=== PATIENT | female | born 1940 | race African-American/Black ===

== ENCOUNTER 2018-09-25 12:16 | Inpatient (IN) ==
[2018-09-25] MEDS ORDERED: NS 1,000 ML IV PRN (12:18)
--- NOTE | 2018-09-25 13:00 | Diag Imaging Result Doc PS360 ---
EXAM: CT HEAD W/O CONTRAST HISTORY: stroke like symptoms TECHNIQUE: CT head without contrast COMPARISON: None. FINDINGS: Recent right craniotomy with lateral skin kayla. Tiny associated extra-axial collection measuring 2 mm in thickness. Hypodense area superiorly in the right parietal lobe consistent with a subacute infarct. This measures less than 3.5 cm. No parenchymal hemorrhage. No hydrocephalus. No sinus opacification. IMPRESSION: 1.Subacute superior right parietal infarct 2.Recent right craniotomy with postsurgical changes This exam was performed using automated exposure control, adjustment of mA or kV according to patient size, and/or use of iterative reconstruction technique. Electronically signed by Dewayne Francisco 09/25/2018 12:57 PM
--- NOTE | 2018-09-25 13:06 | Diag Imaging Result Doc PS360 ---
EXAM: CHEST-PORTABLE HISTORY: stroke like symptoms TECHNIQUE: Portable chest single view COMPARISON: 11/28/2015 FINDINGS: Poor inspiratory effort. The heart is not enlarged. The vessels are not distended. There are no infiltrates. No effusion identified. IMPRESSION: Stable chest Electronically signed by Dewayne Francisco 09/25/2018 1:04 PM
[2018-09-25 13:19] LABS: URINE SOURCE CATH
[2018-09-25 13:30] LABS: BASO# 0.03 X1000 (0.0-0.2); BASO% 0.4 % (0.0-0.8); EOS% 6.6 % (0.0-10.0); HEMATOCRIT 24.3 % (37.0-47.0); HEMOGLOBIN 7.6 g/dL (12.0-16.0); IMM GRAN# 0.02 X1000 (0.0-0.04); IMM GRAN% 0.3 % (0.0-0.5); LYMPH# 1.87 X1000 (1.2-3.4); LYMPH% 24.5 % (20.5-51.1); MCH 25.5 PG (27-31); MCHC 31.3 g/dL (33-37); MCV 81.5 FL (81-99); MONO# 0.47 X1000 (0.11-0.59); MONO% 6.2 % (1.7-9.3); MPV 11.3 FL (7.4-10.4); NEUT# 4.74 X1000 (1.4-6.5); PLT 461 X1000 (130-400); RBC 2.98 XMIL (4.2-5.4); RDW 15.4 % (11.5-14.5); WBC 7.63 X1000 (4.8-10.8)
[2018-09-25 13:31] LABS: BILIRUBIN URINE NEGATIVE (NEGATIVE); BLOOD URINE MODERATE (NEGATIVE); COLOR YELLOW; GLUCOSE URINE 150 mg/dL (NEGATIVE); KETONE URINE NEGATIVE (NEGATIVE); LEUKOCYTES URINE SMALL (NEGATIVE); NITRITE URINE NEGATIVE (NEGATIVE); PROTEIN URINE 50 mg/dL (NEGATIVE); SP GRAVITY URINE 1.029; TURBIDITY URINE HAZY (CLEAR); UR EPITHELIAL CELLS <10 /HPF (<10); URINE BACTERIA NEGATIVE /HPF; URINE WBC <10 /HPF (<10); UROBILINOGEN URINE 2 mg/dL (NORMAL)
[2018-09-25 13:33] LABS: INR 1.45; PROTIME 17.9 Seconds (11.0-16.0); PTT 29.2 Seconds (22.3-41.8)
[2018-09-25 13:34] LABS: UR AMPHETAMINES QUAL NONE DETECTED (NONE DETECT); UR BARBITUATES QUAL NONE DETECTED (NONE DETECT); UR BENZODIAZEPIN QUAL NONE DETECTED (NONE DETECT); UR CANNABINOIDS QUAL NONE DETECTED (NONE DETECT); UR COCAINE QUAL NONE DETECTED (NONE DETECT); UR METHADONE QUAL NONE DETECTED (NONE DETECT); UR OPIATES QUAL NONE DETECTED (NONE DETECT); UR OXYCODONE QUAL NONE DETECTED (NONE DETECT); UR PCP QUAL NONE DETECTED (NONE DETECT)
[2018-09-25 13:35] LABS: BLOOD TYPE ARTERIAL; SAMPLE BLOOD
[2018-09-25 13:36] LABS: ALLEN TEST NO; BE -5.6 mmoll (-3.0-3.0); HCO3-(ACT) 20.6 mmoll (20.0-26.0); METHB 0.8 % (0.0-1.5); O2(CT) 9.6 mL/dL (15.0-23.0); PCO2(98.6) 33 mmHg (35-45); PO2(98.6) 111 mmHg (60-100); SAO2 99.4 % (95.0-100.0); THB 6.9 g/dL (11.5-17.4); pH(98.6) 7.37 (7.35-7.45)
[2018-09-25 13:38] LABS: MODALITY CANNULA
[2018-09-25] MEDS ORDERED: VANCOMYCIN 1 GM/NS 1 GM/250 ML IVPB IV ONE (13:42)
[2018-09-25] MEDS ORDERED: AZACTAM 2 GM in NS 100 ML IV ONE (13:43)
[2018-09-25 13:45] LABS: URINE YEAST NONE SEEN
[2018-09-25 13:50] LABS: ALB/GLOB RATIO 0.9; CALCIUM 10.3 mg/dL (8.8-10.2); CREATININE 4.7 mg/dL (0.5-0.9); POTASSIUM 6.2 mmol/L (3.5-5.1); TOTAL BILIRUBIN 1.07 mg/dL (0.20-1.00); TOTAL PROTEIN 6.4 g/dL (6.3-8.3)
--- NOTE | 2018-09-25 13:53 | EKG Report ---
Test Performed on : 09/25/2018 12:37:29 PM Test Reason : Stroke like symptoms Blood Pressure : / mmHG Vent. Rate : 120 BPM Atrial Rate : 120 BPM P-R Int : 158 ms QRS Dur : 082 ms QT Int : 302 ms P-R-T Axes : 049 -08 065 degrees QTc Int : 426 ms Sinus tachycardia. Otherwise normal ECG When compared with ECG of 21-NOV-2015 12:59, ST elevation now present in Inferior leads Unconfirmed Result
[2018-09-25] MEDS ORDERED: NS 1,000 ML IV ONE ×3 (14:00→19:14)
[2018-09-25] MEDS ORDERED: CALCIUM CHLORIDE SYRINGE IV ONE (14:00)
[2018-09-25] MEDS ORDERED: SODIUM BICARBONATE 8.4% IV ONE (14:01)
[2018-09-25] MEDS ORDERED: HUMULIN R IV ONE (14:02)
[2018-09-25 14:35] LABS: CK INDEX 4.8 (0.0-2.5); CK-MB 10.74 ng/mL (0.0-5.0)
[2018-09-25] MEDS ORDERED: ALBUTEROL 0.5% INH CONC FOR HYPERKALEMIA INH ONE (15:12)
[2018-09-25 15:56] LABS: UR CREAT RANDOM 107.3 mg/dL (11-20)
[2018-09-25] MEDS ORDERED: VANCOMYCIN IV PER PHARMACY MISC SCH ×2 (17:30→18:30)
[2018-09-25] MEDS: NS 1,000 ML IV SCH (18:14)
--- NOTE | 2018-09-25 18:40 | Diag Imaging Result Doc PS360 ---
EXAM: CT ABDOMEN/PELVIS W/O CONTRAST HISTORY: r/o perforation TECHNIQUE: CT abdomen and pelvis without oral or intravenous contrast COMPARISON: None. FINDINGS: There is a gastric catheter in the subcutaneous tissues of the anterior abdomen. This does not enter the stomach or abdomen. There is fluid and air in the subcutaneous tissues. Possible debris as well. No calcified gallstones. Normal noncontrasted liver, spleen, pancreas, and adrenal glands. There is a 17 mm stone in the right renal pelvis. No hydronephrosis. Normal aorta. No bowel obstruction. No intra-abdominal abscess. There is a Felton catheter in the urinary bladder. Normal uterus. No pelvic mass. No free fluid in the abdomen or pelvis. IMPRESSION: Malpositioned gastric tube in the subcutaneous tissues. This report was discussed with Joon in the emergency room who will give the results to Dr Palmer on 09/25/2018 at 6:35 PM and was readback. This exam was performed using automated exposure control, adjustment of mA or kV according to patient size, and/or use of iterative reconstruction technique. Electronically signed by Dewayne Francisco 09/25/2018 6:38 PM
[2018-09-25] MEDS: FLAGYL 500 MG/NS 500 MG/100 ML IVPB IV SCH (18:51)
[2018-09-25] MEDS ORDERED: KEPPRA 750 MG in NS 100 ML IV ONE (19:00)
--- NOTE | 2018-09-25 19:07 | PROVIDER DOCUMENTATION ---
This chart was entered by Essence Rubio Scribe, acting as scribe for Kwan Taylor MD. HPI-Neurological Disorder - General Chief Complaint: STROKE ALERT Stated Complaint: STROKE LIKE SX Time Seen by Provider: 09/25/18 13:05 Source: family Allergies/Adverse Reactions: Patient Allergies Allergy/AdvReac Type Severity Reaction Status Date / Time Penicillins Allergy ITCHING Verified 11/21/15 12:31 levofloxacin [From Levaquin] AdvReac NAUSEA/VOMI Verified 11/21/15 12:31 TING Home Medications: Home Medication List Medication Instructions Recorded Confirmed Last Taken Type ATORVAstatin [Lipitor] 40 mg PO QHS 11/21/15 11/27/15 11/26/15 08:30 History 40 Amlodipine Besylate [Norvasc] 5 mg PO DAILY 11/21/15 11/27/15 11/27/15 03:30 History 5 Duloxetine [Cymbalta] 60 mg PO DAILY 11/21/15 11/27/15 11/26/15 07:30 History 60 Folic Acid 400 mg PO DAILY 11/21/15 11/27/15 11/26/15 07:30 History 400 Temazepam [Restoril] 30 mg PO QHS 11/21/15 11/27/15 11/20/15 History 30 Diphenhydramine [Benadryl] 2 cap PO HS PRN PRN 11/27/15 11/27/15 11/26/15 22:00 History 2 Ferrous Sulfate 325 mg PO TID #90 tablet 11/30/15 Unknown Rx Hydrocodone/APAP 10 mg/325 mg 1 - 2 each PO Q4H PRN PRN #60 11/30/15 Unknown Rx [[place]-10] tablet Rivaroxaban [Xarelto] 10 mg PO DAILY@0600 #14 tablet 11/30/15 Unknown Rx - History of Present Illness-Neuro Nature of Presenting Problem: 78 yof presents w/family to ed w/cc poss cva. pt responding to pain but o therwise nonverbal and unable to follow commands or answer questions. pt had recent sx, subdural removed from rt side, kayla to scalp from rt ear to top of scalp. pt has pegg tube. pt came from SNF. family sts pt was found this am confused. pt has hx of arthritis, depression, high cholesterol, htn. uses pain pump. family sts pt had sx for subdural from prev fall at [facility], woke from sx a ble to speak, move extremities, pt within 24 hours had to go back into sx for subdural evacuation again, pt woke up from 2nd sx w/obvious left sided weakness, had CVA. pt has been at [facility] and doing pt w/no problems, pt had a fall yesterday getting out of chair unassisted, family noticed symptoms today. pt has no med hx prior to this. Review of Systems - Adult - REVIEW OF SYSTEMS - ADULT Constitutional: reports: see HPI, other (confusion, responds to pain). denies: chills, fever, fatique Eyes: reports: no symptoms reported Ears, Nose, Mouth & Throat: reports: no symptoms reported Cardiovascular: reports: no symptoms reported Respiratory: reports: no symptoms reported Gastrointestinal: reports: no symptoms reported Genitourinary: reports: no symptoms reported Musculoskeletal: reports: no symptoms reported Integumentary: reports: no symptoms reported Neurological: reports: no symptoms reported. denies: dizziness/vertigo, headache/migraines, slurred speech, syncope Psychiatric: reports: no symptoms reported Endocrine: reports: no symptoms reported Hematologic/Lymphatic: reports: no symptoms reported Allergic/Immunologic: reports: no symptoms reported All Other Systems: Reviewed and Negative Past History - Adult - PAST MEDICAL HISTORY-ADULT Review of Records: reports: Old Records Reviewed, Nursing Assessment Review, Medications Reviewed, Social history reviewed & non-contributory. Major Childhood Illnesses: reports: denies history Cardiovascular: reports: HTN, hyperlipidemia Respiratory: reports: denies history Gastrointestinal: reports: denies history Obstetrical/Gynecological: reports: denies history Genitourinary: reports: denies history Musculoskeletal: reports: arthritis Neurological: reports: denies history Psychiatric: reports: depression Endocrine/Immune: reports: denies history Other Conditions: reports: denies history - PRIOR SURGERIES/PROCEDURES Surgical/Procedure History: reports: recent surgery (scalp), other - IMMUNIZATION STATUS Childhood Immunizations: See Nurse Assessment Flu Vaccine: See Nurse Assessment - FAMILY HISTORY Family History: reviewed, not pertinent - SOCIAL HISTORY Smoking: non-smoker Substance Use: none/never Physical Exam- Neurological - Physical Exam-Neuro Initial Vital Signs Reviewed: Yes General Appearance: no apparent distress, lethargic (recent subdural, nonverbal) . negative: alert, anxious, combative Eye Exam: bilateral eye: PERRL, EOMI, other (has bilat blink reflex when hands wave in front of her ) HENMT: normocephalic/atraumatic, other (pt has bottom teeth, no upper teeth). negative: moist mucous membranes (dry muc mem), normal ENT inspection, frontal tenderness, maxillary tenderness Head Injury: other (recent sx, kayla from rt ear to top of scalp, subdural r emoved). negative: active bleeding, contusions, ecchymosis, flap Neck: non-tender, full range of motion, supple, normal inspection Respiratory: chest non-tender, lungs clear, normal breath sounds Cardiovascular: normal peripheral pulses, no edema, no gallop, no JVD, no murmur , tachycardia, other (bp 74/43). negative: regular rate, rhythm, JVD, bradycardia, friction rub, irregularly irregular Abdominal Exam: normal bowel sounds, non tender, soft, other (pegg tube mid abd) . negative: guarding, rigid, rebound Lymphatic: no adenopathy Peripheral Pulses: radial (R): 2+, radial (L): 2+ Extremity: non-tender. negative: normal range of motion (pt able to squeeze fingers w/rt hand. more weak w/left hand.), normal gait, normal inspection, deformity, erythema, inflammation supervisor metalizing Exam: normal hearing, PERRL. negative: normal speech (responds to pain, but nonverbal), abnormal eye position, abnormal speech, facial asymmetry, facial droop Motor/Sensory: no sensory deficit, weak motor strength LUE. negative: no motor deficit, sensory deficit, weak motor strength RUE Neurologic: motor weakness (left sided hand squeeze), other (unable to test cn's due to pt being nonverbal). negative: no motor/sensory deficits, EOM palsy, facial droop, focal weakness, sensory deficit Integumentary: normal color, normal turgor, warm/dry Psych/Mental Status: other (nonverbal). negative: anxious, disheveled, depressed affect - Glascow Coma Scale Best Eye Response: (2) open to pain Best Verbal Response: (1) no verbal response Best Motor Response: (4) withdraws to pain Total Glascow Score: 7 Progress - PLAN OF CARE/RESULTS Progress/Plan/Lab Results: Vital Signs - 8 hr 09/25/18 12:19 09/25/18 13:22 Temperature 97.9 F Pulse Rate 125 H 107 H Respiratory Rate 30 H 25 H Blood Pressure 94/50 94/57 O2 Sat by Pulse Oximetry 94 L 100 Laboratory Results - last 24 hr 09/25/18 09/25/18 09/25/18 12:42 12:47 12:47 WBC 7.63 RBC 2.98 L Hgb 7.6 L Hct 24.3 L MCV 81.5 MCH 25.5 L MCHC 31.3 L RDW Std Deviation 15.4 H Plt Count 461 H MPV 11.3 H Immature Gran % (Auto) 0.3 Neut % (Auto) 62.0 Lymph % (Auto) 24.5 [place] % (Auto) 6.2 Eos % (Auto) 6.6 Baso % (Auto) 0.4 Immature Gran # (Auto) 0.02 Neut # (Auto) 4.74 Lymph # (Auto) 1.87 [place] # (Auto) 0.47 Eos # (Auto) 0.50 Baso # (Auto) 0.03 PT INR PTT (Actin FS) Specimen Type Sample Site pH pCO2 pO2 HCO3 Base Excess Oxyhemoglobin ABG O2 Sat (Calculated) ABG O2 Saturation ABG Carboxyhemoglobin ABG Methemoglobin Jermaine Test A-a O2 Difference Total Hemoglobin Lactate Liter Flow Blood Gas Modality FiO2 % Sodium 138 Potassium 6.2 H* Chloride 96 L Carbon Dioxide 19 L Anion Gap 23 BUN 53 H Creatinine 4.7 H Estimated GFR/1.73 m2 11 BUN/Creatinine Ratio 11 Glucose 180 H POC Glucose 190 H Calculated Osmolality 295 Calcium 10.3 H Total Bilirubin 1.07 H AST 42 H ALT 38 H Alkaline Phosphatase 79 Creatine Kinase Creatine Kinase Index CK-MB (CK-2) Troponin T Total Protein 6.4 Albumin 3.0 L Globulin 3.4 Albumin/Globulin Ratio 0.9 Plasma Lactate Urine Source Urine Color Urine Turbidity Urine pH Ur Specific [place] Urine Protein Ur Glucose (Stick) Ur Ketones (Stick) Urine Blood Urine Nitrite Urine Bilirubin Urobilinogen Dipstick Urine Leukocytes Urine WBC (Auto) Urine RBC (Auto) U Epithel Cells (Auto) Urine Bacteria (Auto) Urine Crystals Small Round Cells Urine Casts Urine Yeast-like Cells Urine Opiates Screen Ur Oxycodone Screen Ur Methadone, Qual Ur Barbiturates Screen Ur Phencyclidine Scrn Ur Amphetamines Screen U Benzodiazepines Scrn Urine Cocaine Screen U Cannabinoids Screen 09/25/18 09/25/18 09/25/18 12:47 12:47 12:47 WBC RBC Hgb Hct MCV MCH MCHC RDW Std Deviation Plt Count MPV Immature Gran % (Auto) Neut % (Auto) Lymph % (Auto) [place] % (Auto) Eos % (Auto) Baso % (Auto) Immature Gran # (Auto) Neut # (Auto) Lymph # (Auto) [place] # (Auto) Eos # (Auto) Baso # (Auto) PT INR PTT (Actin FS) Specimen Type Sample Site pH pCO2 pO2 HCO3 Base Excess Oxyhemoglobin ABG O2 Sat (Calculated) ABG O2 Saturation ABG Carboxyhemoglobin ABG Methemoglobin Jermaine Test A-a O2 Difference Total Hemoglobin Lactate Liter Flow Blood Gas Modality FiO2 % Sodium Potassium Chloride Carbon Dioxide Anion Gap BUN Creatinine Estimated GFR/1.73 m2 BUN/Creatinine Ratio Glucose POC Glucose Calculated Osmolality Calcium Total Bilirubin AST ALT Alkaline Phosphatase Creatine Kinase 226 H Creatine Kinase Index 4.8 H CK-MB (CK-2) 10.74 H Troponin T 0.043 Total Protein Albumin Globulin Albumin/Globulin Ratio Plasma Lactate 5.8 H* Urine Source Urine Color Urine Turbidity Urine pH Ur Specific [place] Urine Protein Ur Glucose (Stick) Ur Ketones (Stick) Urine Blood Urine Nitrite Urine Bilirubin Urobilinogen Dipstick Urine Leukocytes Urine WBC (Auto) Urine RBC (Auto) U Epithel Cells (Auto) Urine Bacteria (Auto) Urine Crystals Small Round Cells Urine Casts Urine Yeast-like Cells Urine Opiates Screen Ur Oxycodone Screen Ur Methadone, Qual Ur Barbiturates Screen Ur Phencyclidine Scrn Ur Amphetamines Screen U Benzodiazepines Scrn Urine Cocaine Screen U Cannabinoids Screen 09/25/18 09/25/18 09/25/18 12:59 13:12 13:12 WBC RBC Hgb Hct MCV MCH MCHC RDW Std Deviation Plt Count MPV Immature Gran % (Auto) Neut % (Auto) Lymph % (Auto) [place] % (Auto) Eos % (Auto) Baso % (Auto) Immature Gran # (Auto) Neut # (Auto) Lymph # (Auto) [place] # (Auto) Eos # (Auto) Baso # (Auto) PT 17.9 H INR 1.45 PTT (Actin FS) 29.2 Specimen Type Sample Site pH pCO2 pO2 HCO3 Base Excess Oxyhemoglobin ABG O2 Sat (Calculated) ABG O2 Saturation ABG Carboxyhemoglobin ABG Methemoglobin Jermaine Test A-a O2 Difference Total Hemoglobin Lactate Liter Flow Blood Gas Modality FiO2 % Sodium Potassium Chloride Carbon Dioxide Anion Gap BUN Creatinine Estimated GFR/1.73 m2 BUN/Creatinine Ratio Glucose POC Glucose Calculated Osmolality Calcium Total Bilirubin AST ALT Alkaline Phosphatase Creatine Kinase Creatine Kinase Index CK-MB (CK-2) Troponin T Total Protein Albumin Globulin Albumin/Globulin Ratio Plasma Lactate Urine Source CATH Urine Color YELLOW Urine Turbidity HAZY Urine pH 5.0 Ur Specific [place] 1.029 Urine Protein 50 A Ur Glucose (Stick) 150 A Ur Ketones (Stick) NEGATIVE Urine Blood MODERATE A Urine Nitrite NEGATIVE Urine Bilirubin NEGATIVE Urobilinogen Dipstick 2 A Urine Leukocytes SMALL A Urine WBC (Auto) <10 Urine RBC (Auto) 10-20 A U Epithel Cells (Auto) <10 Urine Bacteria (Auto) NEGATIVE Urine Crystals Not Reportable Small Round Cells Not Reportable Urine Casts Not Reportable Urine Yeast-like Cells NONE SEEN Urine Opiates Screen NONE DETECTED Ur Oxycodone Screen NONE DETECTED Ur Methadone, Qual NONE DETECTED Ur Barbiturates Screen NONE DETECTED Ur Phencyclidine Scrn NONE DETECTED Ur Amphetamines Screen NONE DETECTED U Benzodiazepines Scrn NONE DETECTED Urine Cocaine Screen NONE DETECTED U Cannabinoids Screen NONE DETECTED 09/25/18 13:27 WBC RBC Hgb Hct MCV MCH MCHC RDW Std Deviation Plt Count MPV Immature Gran % (Auto) Neut % (Auto) Lymph % (Auto) [place] % (Auto) Eos % (Auto) Baso % (Auto) Immature Gran # (Auto) Neut # (Auto) Lymph # (Auto) [place] # (Auto) Eos # (Auto) Baso # (Auto) PT INR PTT (Actin FS) Specimen Type ARTERIAL Sample Site R BRACHIAL pH 7.37 pCO2 33 L pO2 111 H HCO3 20.6 Base Excess -5.6 L Oxyhemoglobin 96.0 ABG O2 Sat (Calculated) 9.6 L ABG O2 Saturation 99.4 ABG Carboxyhemoglobin 2.60 H ABG Methemoglobin 0.8 Jermaine Test NO A-a O2 Difference 47.0 Total Hemoglobin 6.9 L Lactate 5.20 H* Liter Flow 2.0 Blood Gas Modality CANNULA FiO2 % 28.0 Sodium Potassium Chloride Carbon Dioxide Anion Gap BUN Creatinine Estimated GFR/1.73 m2 BUN/Creatinine Ratio Glucose POC Glucose Calculated Osmolality Calcium Total Bilirubin AST ALT Alkaline Phosphatase Creatine Kinase Creatine Kinase Index CK-MB (CK-2) Troponin T Total Protein Albumin Globulin Albumin/Globulin Ratio Plasma Lactate Urine Source Urine Color Urine Turbidity Urine pH Ur Specific [place] Urine Protein Ur Glucose (Stick) Ur Ketones (Stick) Urine Blood Urine Nitrite Urine Bilirubin Urobilinogen Dipstick Urine Leukocytes Urine WBC (Auto) Urine RBC (Auto) U Epithel Cells (Auto) Urine Bacteria (Auto) Urine Crystals Small Round Cells Urine Casts Urine Yeast-like Cells Urine Opiates Screen Ur Oxycodone Screen Ur Methadone, Qual Ur Barbiturates Screen Ur Phencyclidine Scrn Ur Amphetamines Screen U Benzodiazepines Scrn Urine Cocaine Screen U Cannabinoids Screen Orders Category Date Time Status Cardiac Monitoring DIRECTED Care 09/25/18 12:18 Active Core Temperature ORDERED Care 09/25/18 13:14 Active Finger Stick Blood Sugar (ED) DIRECTED Care 09/25/18 12:18 Completed Felton Cath Insertion ORDERED Care 09/25/18 13:14 Active Misc. NRSG Communication Order DIRECTED Care 09/25/18 12:18 Active Notify MD of + Sepsis Screen NOW Care 09/25/18 13:24 Active Notify Physician As Ordered Care 09/25/18 13:24 Active Oxygen Therapy- ED Nursing DIRECTED Care 09/25/18 12:18 Active Saline Loc NOW Care 09/25/18 12:18 Active CHEST-PORTABLE [RAD] Stat Exams 09/25/18 12:[address] HEAD W/O CONTRAST [CT] Stat Exams 09/25/18 12:18 Completed ABG [RESP] Routine Lab 09/25/18 13:27 Completed BLOOD CULTURE [BLDCUL] Stat Lab 09/25/18 12:49 Results CBC WITH ELECTRONIC DIFF [HEME] Stat Lab 09/25/18 12:47 Completed CK PROFILE [SP CHEM] Stat Lab 09/25/18 12:47 Completed COMPREHENSIVE METABOLIC PANEL [CHEM] Stat Lab 09/25/18 12:47 Completed LACTATE, PLASMA [CHEM] Lab 09/25/18 15:47 Uncollected LACTATE, PLASMA [CHEM] Lab 09/25/18 18:47 Uncollected LACTATE, PLASMA [CHEM] Stat Lab 09/25/18 12:47 Completed PROTIME WITH INR [COAG] Stat Lab 09/25/18 12:59 Completed PTT [COAG] Stat Lab 09/25/18 12:59 Completed TROPONIN T Stat Lab 09/25/18 12:47 Completed URINALYSIS W/POSS RFLX CULT [URINALYSIS] Stat Lab 09/25/18 13:12 Completed URINE CULTURE [RM] Routine Lab 09/25/18 13:33 Received URINE DRUG SCREEN Stat Lab 09/25/18 13:12 Completed URINE MANUAL MICROSCOPIC [URINALYSIS] Stat Lab 09/25/18 13:12 Completed 0.9% Sodium Chloride Inj [Ns] 1,000 ml Med 09/25/18 14:00 Active IV 999 mls/hr 0.9% Sodium Chloride Inj [Ns] 1,000 ml Med 09/25/18 12:18 Active IV As Directed mls/hr Aztreonam [Azactam] 2 gm Med 09/25/18 13:43 Discontinued 0.9% Sodium Chloride Inj [Ns] 100 ml IV NOW Calcium Chloride Syringe Med 09/25/18 14:00 Discontinued 1 gm IV NOW ONE Insulin Human Regular [Humulin R] Med 09/25/18 14:02 Discontinued 5 unit IV NOW ONE Sodium Bicarbonate 8.4% Med 09/25/18 14:01 Discontinued 100 meq IV NOW ONE Vancomycin 1 gm/Ns Med 09/25/18 13:42 Discontinued 1 gm in 250 ml IV NOW EKG [EKG] Stat Ther 09/25/18 12:18 Draft Result Diagrams: 09/25/18 12:47 09/25/18 12:47 - EKG 1 Time of EKG reading by physician:: 12:37 EKG Read and Signed by:: Kwan Taylor EKG Interpretation (*Must complete 3 of following elements*): Normal Rate: 120 Rhythm: ST [place]: normal QRS: normal ME Interval: normal ST Wave: normal 2 Time of EKG reading by physician:: 14:46 EKG Read and Signed by:: Kwan Taylor EKG Interpretation (*Must complete 3 of following elements*): Abnormal Rate: 111 Rhythm: ST [place]: normal QRS: normal ST Wave: normal, non-specific ST changes (nonspecific st and t wave abnormality) - XRAY 1 XRAY: Bilateral XRAY Study: Chest Impression: Normal, See EMR Report (EXAM: CHEST-PORTABLE HISTORY: stroke like symptoms TECHNIQUE: Portable chest single view COMPARISON: 11/28/2015 FINDINGS: Poor inspiratory effort. The heart is not enlarged. The vessels are not distended. There are no infiltrates. No effusion identified. IMPRESSION: Stable chest Electronically signed by Dewayne Francisco 09/25/2018 1:04 PM) Comparison with other Films: changes noted - CT/MRI 1 CT Study: Head Impression: Abnormal, See EMR Report (EXAM: CT HEAD W/O CONTRAST HISTORY: stroke like symptoms TECHNIQUE: CT head without contrast COMPARISON: None. FINDINGS: Recent right craniotomy with lateral skin kayla. Tiny associated extra-axial collection measuring 2 mm in thickness. Hypodense area superiorly in the right parietal lobe consistent with a subacute infarct. This measures less than 3.5 cm. No parenchymal hemorrhage. No hydrocephalus. No sinus opacification. IMPRESSION: 1.Subacute superior right parietal infarct 2.Recent right craniotomy with postsurgical changes This exam was performed using automated exposure control, adjustment of mA or kV according to patient size, and/or use of iterative reconstruction technique. Electronically signed by Dewayne Francisco 09/25/2018 12:57 PM) Comparison with other Films: no prior study - CONSULTS/PCP/HOSPITALIST Notification #1 *Consult/PCP/Hospitalist*: romaine Edward Time Discussed: 14:35 Consult Disposition: Admit (admit as inpatient) Departure - Departure Date of Disposition Decision: 09/25/18 Time of Disposition Decision: 14:45 DIAGNOSIS: Hyperkalemia Sepsis Qualifiers: Sepsis type: sepsis due to unspecified organism Acute renal failure type: with acute tubular necrosis Acute renal failure Qualifiers: Acute renal failure type: with acute tubular necrosis Qualified Code(s): N17.0 - Acute kidney failure with tubular necrosis Anemia Qualifiers: Anemia type: unspecified type Qualified Code(s): D64.9 - Anemia, unspecified Disposition: ADMITTED INPATIENT 09 Certified Medical Emergency: Emergent Condition: Critical Referrals and Follow-Ups: Justin Marquez MD [Primary Care Provider] - - Critical Care Note This patient required my direct & personal management of CC.: Yes Total Time (mins): 75 Critical Care Statement: This patient required my direct personal management to treat or rule out processes, the absence of which, could potentiallly result in sudden, clinically significant life or limb threatening deterioration. Attestation - Physician/ SURESH Attestation Patient care was provided by Advanced Practice Provider:: No The physician spent face to face time with patient:: Yes Advanced Practice Provider documentation review:: Supervising physician onsite and consulted in the evaluation and care of this patient. The physician did have a face to face encounter with the patient. This chart was documented by the indicated scribe, (Essence Rubio, Jose) and accurately reflects the services I performed and decisions made by , Kwan Taylor MD, as attested by the provider's signature.
--- NOTE | 2018-09-25 19:22 | HISTORY AND PHYSICAL ---
ADDENDUM: I agree with most components of history, physical, assessment and plan. In brief Ms Watt is 78 years old lady with past medical history of mechanical fall leading to subdural hematoma in August 2018 requiring craniotomy and evacuation as well as new cerebrovascular accident affecting right parietal lobe during that admission who was recently discharged to rehab 3 days prior to current presentation was brought in to the emergency room for chief complaints of progressively worsening mental status, drowsiness and confusion. After discharge from [facility] 5 days ago her baseline mental status was mostly alert, responding to questions in monosyllable answers and having left-sided hemineglect. However since yesterday she has not been responding and has been very sleepy, not opening her eyes. In the emergency room she was found to have thrombocytosis, profound lactic acidosis, hyperkalemia and acute kidney injury. Urinalysis had no pyuria, had moderate blood with 10 to 12 RBC so hospitalist team was consulted for further management after intravenous fluid resuscitation. Apparently considering her hyperkalemia she was given a dose of calcium gluconate and bicarbonate push, following bicarbonate push she did have bradycardia episode with heart rate dropping to as low as 30 which spontaneously came back. EKG is suggestive of a mild ST elevation in about 1 mm in lead 2 but not in contiguous leads. Her initial troponin has been negative. SUBJECTIVE: Currently patient is drowsy, moaning, does not engage in any meaningful conversation. The patient's family is at bedside. They mention to me that patient did have a fall episode 2 days ago which was unwitnessed but it was presumed that she did not have any head injury. However, her mental status was still baseline after that which started deteriorating yesterday. They have been using the PEG tube without any complications according to family. VITALS: Currently temperature 97.9 degrees, pulse 107, respiratory rate 25, blood pressure 94/57, saturating 100% on 2 L nasal cannula. PHYSICAL EXAMINATION: Obese in mild to moderate distress, moaning and groaning. She resists eye opening but pupil on the left side is reacting to light. She does not allow me to open her mouth. Air entry bilaterally equal. No wheeze, rhonchi, crackles. S1, S2 normal. No murmur or gallop. ABDOMEN: Has a PEG tube. It is distended, diffusely tender, appears firm, it is tympanic to percussion but I could appreciate some crackles on my abdominal examination. She has urine catheter. No lower extremity edema. NEUROLOGIC: She is moving her right upper and lower extremities spontaneously, not moving left upper and lower extremity. I could not identify any facial droop. LABS: Suggestive of normocytic anemia, thrombocytosis, elevated INR, lactic acidosis hyperkalemia, low bicarbonate without acidosis, acute kidney injury, hyperglycemia, hypercalcemia, transaminitis, hematuria. Blood culture and urine culture are in lab. IMAGING: Head CT had suggested subacute superior right parietal infarct which patient's daughter attested to that she had it during [facility] stay and recent right craniotomy with postsurgical changes. Chest x-ray did not have an acute cardiopulmonary process. ASSESSMENT AND PLAN: 1. Sepsis and lactic acidosis from unidentified source likely the source being her abdomen. Differential includes leaking percutaneous endoscopic gastrostomy tube leading to peritonitis, bowel perforation versus others. Stat CT scan of the abdomen and pelvis has been ordered. Will follow up with the results. 2. Acute kidney injury in the setting of sepsis and hypotension. Continue intravenous fluid resuscitation. Start patient on intravenous antibiotics, follow up serial BMP, troponins, and lactate. 3. Acute metabolic encephalopathy from above mentioned metabolic disturbances. 3. Recent history of right parietal cerebrovascular accident, right subdural hematoma requiring craniotomy. I will resume her medications once acute issues improve. Creatinine, total CK is also pending since there is also suspicion of seizure which could have brought about her lactic acidosis. Plan of care extensively discussed with patient's daughter and son at bedside. Current code status is full by default. They are discussing among themselves to further communicate the CAT scan after looking at the CAT scan of the abdomen, pelvis results. cc: MD ANNA Steinberg
[2018-09-25 19:39] LABS: CALCIUM 10.2 mg/dL (8.8-10.2); CREATININE 3.8 mg/dL (0.5-0.9); POTASSIUM 4.6 mmol/L (3.5-5.1)
[2018-09-25 19:40] LABS: ALBUMIN 2.3 g/dL (3.5-5.0); CALCIUM 9.9 mg/dL (8.8-10.2); CREATININE 4.1 mg/dL (0.5-0.9); PHOSPHORUS 6.5 mg/dL (2.7-4.5); POTASSIUM 4.6 mmol/L (3.5-5.1)
--- NOTE | 2018-09-25 19:44 | PROGRESS NOTE ---
DATE: 09/25/2018 I followed up with a CT scan of the abdomen and pelvis which had detected malpositioned gastric tube in the subcutaneous tissue, there was fluid and air in the subcutaneous tissue. There were possible diabetes as well. There was no organized intra-abdominal abscess. I called the surgeon doctor and informed him about the CAT scan image and informed him about patient's septic picture. Appreciate surgery recommendation. I went to the bedside and updated the patient's family members. I told them that her condition is really critical and we will have to closely monitor her hemodynamics in ICU. TIME SPENT: More than 30 minutes of critical care time was spent in taking care of this patient. cc: Kb Palmer MD
--- NOTE | 2018-09-25 19:56 | HISTORY AND PHYSICAL ---
CHIEF COMPLAINT: Unresponsive. HISTORY OF PRESENT ILLNESS: This is a 78-year-old female with a prior history of hyperlipidemia, hypertension and recent subdural hematoma x2. She presents from a rehab facility after being found unresponsive by her family members today. Ms Watt sustained a subdural bleed approximately 10 days ago after a fall. Symptoms started within 48 hours. According to the family, she was taken to [facility]. The bleed was found on CT scan. She underwent an evacuation. Within 12 to 24 hours she rebled, underwent a 2nd evacuation. After this surgery she was noted to have left hemiparesis with speech deficit. She was discharged [facility]. The family states that her speech had returned to normal, that her only deficit was left upper and lower extremity weakness. Two days ago she was reportedly trying to get out of a chair and fell. The family denied any loss of consciousness. Denied that she hit her head. They stated that she remained at her normal status until this morning when they went to check on her they found her lying in the bed nonverbal, "she was breathing funny and she looked funny." PAST MEDICAL HISTORY: 1. Recent subdural hematoma x2 status post evacuation. 2. CVA. 3. Hypertension. 4. Hyperlipidemia. PAST SURGICAL HISTORY: G-tube placement, craniotomy x2. SOCIAL HISTORY: She is a resident at a rehab facility. Family denies any alcohol, tobacco, or illicit drug use. ALLERGIES: Penicillin and Levaquin which caused itching and nausea and vomiting. HOME MEDICATIONS: A list will be obtained by the nursing staff and once verified will review start as appropriate. REVIEW OF SYSTEMS: Unable o obtain from the patient due to her mental status. PHYSICAL EXAMINATION: GENERAL: This is a 78-year-old female who is lying in the bed in no distress. VITAL SIGNS: Blood pressure is 107/54 with a heart rate of 107, respirations are 16, temperature is 97.9 degrees with O2 saturation 100% on 2 L nasal cannula. CARDIOVASCULAR: Regular rate and rhythm. She is tachycardic. S1 and S2 appreciated. She has no lower extremity edema with peripheral pulses palpable x4 extremities. PULMONARY: Breath sounds are clear with no increased work of breathing noted. GASTROINTESTINAL: Abdomen soft. She has generalized tenderness. She does have positive bowel sounds. Crepitus is felt around epigastric to the right upper quadrant region. Midabdomen feeding tube is noted with site clear. NEUROLOGIC: She does open her eyes to tactile stimulation as well as her name being called. She did not follow commands. She moves her right arm and leg at random. She does withdraw from pain with gross movement to her left arm. LABS: WBC is 7.6 with hemoglobin 7.6 and hematocrit 24.3, platelets are 461,000. Sodium is 138, potassium 6.2, BUN is 53, creatinine 4.7, anion gap is 23 with a CO2 of 19, glucose is 180, she does have a lactate of 5.8. Urinalysis reveals less than 10 white blood cells, 10 to 20 red blood cells with no bacteria, this is a catheterization specimen. Urine drug screen reveals none detected. CT of the head reveals subacute superior right parietal infarct with recent right craniotomy. Chest x-ray reveals stable chest. Blood cultures and urine culture pending. ASSESSMENT AND PLAN: 1. Sepsis from suspected intraabdominal source. 2. Acute kidney injury. 3. Lactic acidosis. 4. Encephalopathy. 5. Recent subdural hematoma status post evacuation x2. 6. Hyperkalemia. PLAN: Patient will be admitted to ICU for close monitoring with vital signs and monitoring per ICU protocol. she will remain n.p.o. continue IV hydration. Trend troponins as well as recheck a renal profile. Trend electrolytes and treat appropriately We will obtain a CT of the abdomen and pelvis without contrast. Continue Azactam and vancomycin , with vancomycin dosed per pharmacy. continue Keppra IV q.12 hours. CPKs, CK profile. Plan has been discussed with Dr. Palmer. Further treatments pending hospital course. Dictated by HONEY Dumont for Kb Palmer MD cc: HONEY Dumont MD I agree with most components of history, physical, assessment and plan. A separate addendum has been dictated. [facility]
--- NOTE | 2018-09-25 21:11 | CONSULTATION ---
DATE OF CONSULTATION: 09/25/2018 Ms. Fadumo Watt is a 78-year-old black female who was recently hospitalized at [facility] and required craniotomy for intracranial bleed. She has had some residual weakness left side and she has been hospitalized locally at 1 of our nursing homes. It was noted that she had increased abdominal distention and pain and was sent to our emergency department this evening and I was asked to see her because of some subcutaneous fluid around a misplaced gastrostomy tube. This gastrostomy tube was placed in [place] to help feed her. On exam Ms. Fadumo Watt is an overweight black female who is awake and cooperative. She is tachycardic with a heart rate of 120, her blood pressure is 109/60, O2 saturation was 95%. She had no jaundice. No oral lesions. Her heart had a regular rate. Lungs were clear. Her abdomen was distended and tender. She had a gastrostomy tube taped in place. Rectal and vaginal exams were not performed. She did have palpable femoral pulses. She does have some peripheral edema. She is weak on the left side. She had no peripheral ulcers. A CT scan of her abdomen and pelvis suggested a misplaced gastrostomy tube was within the subcutaneous tissue and there was fluid in the subcutaneous tissue and air. The tube was clamped. She is in acute renal failure by her labs. She is anemic. IMPRESSION: Misplaced gastrostomy tube within the subcutaneous tissue with tube feeding within her subcutaneous tissue and air. PLAN: At the bedside I opened up the gastrostomy tube and used it like a drain of the subcutaneous tissue and pressed out the subcutaneous fluid through the gastrostomy tube, also hooked the gastrostomy tube to suction to try to remove more of the subcutaneous fluid which appeared to be tube feeding. Once I could get no more fluid from the subcutaneous tissue out of the gastrostomy tube I removed the gastrostomy tube from the subcutaneous tissue and packed the wound open with iodoform gauze followed by dry dressing. I got about 500 mL of what appeared to be tube feeding from her subcutaneous tissue. Plans are for the hospitalist to have her transferred to the ICU where she will be resuscitated with fluid and receive IV antibiotics. The family was at the bedside as I worked with the patient and I discussed the care with them. cc: Susan Mari MD
[2018-09-25] MEDS: AZACTAM 1 GM in NS 50 ML IV SCH (23:39)
[2018-09-25 23:52] LABS: CALCIUM 10.3 mg/dL (8.8-10.2); CREATININE 3.7 mg/dL (0.5-0.9); POTASSIUM 4.9 mmol/L (3.5-5.1)
[2018-09-25] MEDS ORDERED: BLISTEX MEDICATED BERRY LIP BALM TOP PRN (23:58)
[2018-09-26] MEDS: DILAUDID IV PRN ×3 (00:14→17:41)
[2018-09-26] MEDS ORDERED: NS 500 ML IV ONE ×2 (00:36→12:06)
[2018-09-26] MEDS ORDERED: LEVOPHED 8 MG in D5 1/2 NS 250 ML IV SCH ×2 (00:45→12:10)
[2018-09-26] MEDS: FLAGYL 500 MG/NS 500 MG/100 ML IVPB IV SCH ×5 (01:58→23:47)
[2018-09-26 04:15] LABS: ALLEN TEST YES; BE -2.9 mmoll (-3.0-3.0); BLOOD TYPE ARTERIAL; HCO3-(ACT) 22.7 mmoll (20.0-26.0); METHB 1.5 % (0.0-1.5); O2(CT) 8.7 mL/dL (15.0-23.0); O2HB 96.4 % (95.0-99.0); PCO2(98.6) 36 mmHg (35-45); PO2(98.6) 170 mmHg (60-100); SAMPLE BLOOD; SAO2 99.6 % (95.0-100.0); THB 6.1 g/dL (11.5-17.4); pH(98.6) 7.39 (7.35-7.45)
[2018-09-26 04:16] LABS: MODALITY CANNULA
[2018-09-26] MEDS: KEPPRA 750 MG in NS 100 ML IV SCH ×2 (05:15→17:41)
[2018-09-26] MEDS: NS 1,000 ML IV SCH (05:20)
[2018-09-26 07:03] LABS: ALB/GLOB RATIO 0.6; ALBUMIN 1.9 g/dL (3.5-5.0); CALCIUM 9.5 mg/dL (8.8-10.2); CREATININE 3.2 mg/dL (0.5-0.9); MAGNESIUM 2.5 mg/dL (1.5-2.7); POTASSIUM 4.9 mmol/L (3.5-5.1); TOTAL BILIRUBIN 0.76 mg/dL (0.20-1.00); TOTAL PROTEIN 5.2 g/dL (6.3-8.3)
[2018-09-26] MEDS: LR 1,000 ML IV SCH ×3 (07:42→23:48)
[2018-09-26 08:08] LABS: BASO# 0.01 X1000 (0.0-0.2); BASO% 0.3 % (0.0-0.8); EOS# 0.03 X1000 (0.0-0.7); HEMOGLOBIN 5.6 g/dL (12.0-16.0); LYMPH# 0.52 X1000 (1.2-3.4); MCH 25.3 PG (27-31); MCHC 31.1 g/dL (33-37); MCV 81.4 FL (81-99); MONO% 6.9 % (1.7-9.3); MPV 10.9 FL (7.4-10.4); NEUT# 2.13 X1000 (1.4-6.5); NEUT% 73.8 % (42.2-75.2); PLT 303 X1000 (130-400); RBC 2.21 XMIL (4.2-5.4); RDW 15.2 % (11.5-14.5); WBC 2.89 X1000 (4.8-10.8)
[2018-09-26] MEDS: AZACTAM 1 GM in NS 50 ML IV SCH ×3 (08:30→22:40)
[2018-09-26 08:36] LABS: BANDS 26 % (0-1); LYMPHS 24 % (21-51); MONO 4 % (1-9); SEGS 38 % (42-75)
[2018-09-26 08:37] LABS: HYPOCHROM 2+; POIKILOCYTOSIS 1+
[2018-09-26 08:38] LABS: LARGE PLATELETS 1+
--- NOTE | 2018-09-26 08:43 | PROGRESS NOTE ---
DATE: 09/26/2018 INTERVAL HISTORY: Surgical team came by and had applied suction to the PEG tube, and the PEG tube contained about 500 mL which was lower inside the abdominal wall where it sucked out, after which it was dressed with iodoform and dry. Her hyperkalemia had resolved overnight and her lactic acidosis was improving. SUBJECTIVE: She is still moaning and groaning, not alert. She resists eye opening. VITALS: She had a temperature of 100.8 degrees, pulse 113, respiratory rate 18, blood pressure 106/63. She is saturating 98% on 2 L nasal cannula. PHYSICAL EXAMINATION: General: She appears in mild distress, likely because of abdominal pain. Oral Cavity: Poor hygiene. Lungs: Air entry bilaterally equal. No wheeze or crackles. Cardiovascular: S1, S2 normal. No murmur, rub, or gallop. Abdomen: The PEG tube has been removed and the site is dressed. There is still some crepitus on superficial palpation. Abdomen does appear to be rigid on deep palpation and excruciating tenderness. No bowel sounds. She has a urine catheter. Extremities: No lower extremity edema. Neurologic: She is drowsy. Pupils bilaterally equal, reacting to light. She is moaning and groaning. No obvious facial asymmetry. She has right-sided scalp craniotomy kayla. She is moving right upper and lower extremities spontaneously. She does have spontaneous movement of left lower extremity, however less than on the right. She is not moving the left upper extremity. She is able to feel painful stimuli in all extremities. LABS: CBC is pending. ABG is suggestive of no acidosis. Lactate is improving. Hypernatremia, hyperchloremia. Acute kidney injury, likely prerenal. Transaminitis is also improving. MICROBIOLOGY: No data. IMAGING: No new data. ASSESSMENT AND PLAN: 1. Septic shock and lactic acidosis, likely from chemical inflammation due to misplaced percutaneous endoscopic gastrostomy tube causing inflammation of subcutaneous tissue as evidenced on CT scan, status post removal of percutaneous endoscopic gastrostomy tube by surgical team. She still has clinical signs of inflamed abdominal wall with rigidity on examination. I appreciate Surgery recommendations for further care. I will continue her on intravenous vancomycin, intravenous aztreonam, and intravenous metronidazole. Follow up blood culture and urine culture results. Cont IV fluids and start Norepinephrine with goal MAP >65 mmHg 2. Acute kidney injury in the setting of sepsis, leading to hypotension. Continue intravenous fluids. Close input and output monitoring with Felton catheter. 3. Acute metabolic encephalopathy, likely because of above-mentioned metabolic disturbance. We will continue to monitor. 4. Recent history of right-sided subdural hematoma, requiring craniotomy in August 2018, as well as a right parietal stroke, status post residual left-sided weakness and residual speech abnormality. Aware. I will avoid any anticoagulants or aspirin on her. I will resume her atorvastatin once we have secured an enteral access, hopefully nasogastric tube, after surgery recommendations.I will continue intravenous Keppra for seizure prophylaxis after her hematoma. 5. Anemia. I will follow up the entire CBC and will consider transfusion. This could be due to hemodilution vs other causes. Plan of care discussed with nursing team. I will update the patient's family. More than 30 minutes of critical care time was spent in taking care of this patient. I went to the bedside and discussed her critical condition with her daughter and answered all of her questions.. cc: Kb Palmer MD MTDD
--- NOTE | 2018-09-26 08:55 | PROGRESS NOTE ---
DATE: 09/26/2018 SUBJECTIVE: Ms. Fadumo Watt is now in hospital day 2. She is in our ICU with sepsis and acute renal failure. She had her gastrostomy tube become dislodged and it was in her subcutaneous tissue. She had some tube feeding in her subcutaneous tissue. I saw her in the ER yesterday. I removed her gastrostomy tube and drained as much as the subcutaneous fluid as I could through that gastrostomy tube wound. I packed the wound open and dressed it with a dry dressing. Clinically, she has improved this morning with a decreasing serum creatinine. Her BUN is 48 creatinine is 3.20. She is anemic with a presenting hematocrit of 24%. She has had brain surgery and is weak on her left side. She does respond to pain. OBJECTIVE: Vital Signs: Her heart rate is 113, blood pressure 106/63, O2 saturation 98%. She has a low-grade fever 100.8. She is on multiple IV antibiotics. She is receiving fluid. Her lactate has improved. PLAN: We will continue local wound care and IV antibiotics for this displaced gastrostomy tube. cc: Susan Mari MD
[2018-09-26] MEDS: TYLENOL PR PRN (09:45)
--- NOTE | 2018-09-26 09:48 | EKG Report ---
Test Performed on : 09/26/2018 06:45:30 AM Test Reason : Follow up ST T changes due to hyperkalemia Blood Pressure : / mmHG Vent. Rate : 114 BPM Atrial Rate : 114 BPM P-R Int : 220 ms QRS Dur : 068 ms QT Int : 308 ms P-R-T Axes : 060 003 044 degrees QTc Int : 424 ms Sinus tachycardia. with 1st degree AV block. Low voltage QRS Borderline ECG When compared with ECG of 25-SEP-2018 14:57, (Unconfirmed) Sinus rhythm. has replaced Wide QRS rhythm. Confirmed by Jatinder KING MSheila Valles ([id number]) on 09/27/2018 4:10:54 PM
--- NOTE | 2018-09-26 10:37 | EKG Report ---
Test Performed on : 09/25/2018 2:40:17 PM Test Reason : poss stroke Blood Pressure : / mmHG Vent. Rate : 111 BPM Atrial Rate : 111 BPM P-R Int : 178 ms QRS Dur : 068 ms QT Int : 314 ms P-R-T Axes : 064 005 083 degrees QTc Int : 427 ms Sinus tachycardia. Nonspecific ST and T wave abnormality Abnormal ECG When compared with ECG of 25-SEP-2018 12:37, (Unconfirmed) ST now depressed in Anterior leads Nonspecific T wave abnormality, worse in Anterolateral leads Unconfirmed Result
--- NOTE | 2018-09-26 10:42 | EKG Report ---
Test Performed on : 09/25/2018 2:57:50 PM Test Reason : poss stroke Blood Pressure : / mmHG Vent. Rate : 110 BPM Atrial Rate : 108 BPM P-R Int : 000 ms QRS Dur : 146 ms QT Int : 406 ms P-R-T Axes : 000 -15 127 degrees QTc Int : 549 ms Wide QRS rhythm. Left bundle branch block Abnormal ECG When compared with ECG of 25-SEP-2018 14:40, (Unconfirmed) Wide QRS rhythm. has replaced Sinus rhythm. Unconfirmed Result
[2018-09-26 12:00] LABS: EOS# 0.02 X1000 (0.0-0.7); EOS% 0.8 % (0.0-10.0); HEMATOCRIT 17.4 % (37.0-47.0); HEMOGLOBIN 5.3 g/dL (12.0-16.0); IMM GRAN# 0.04 X1000 (0.0-0.04); IMM GRAN% 1.6 % (0.0-0.5); LYMPH# 0.42 X1000 (1.2-3.4); LYMPH% 16.6 % (20.5-51.1); MCH 25.1 PG (27-31); MCHC 30.5 g/dL (33-37); MCV 82.5 FL (81-99); MONO# 0.22 X1000 (0.11-0.59); MONO% 8.7 % (1.7-9.3); MPV 10.4 FL (7.4-10.4); NEUT# 1.83 X1000 (1.4-6.5); NEUT% 72.3 % (42.2-75.2); PLT 281 X1000 (130-400); RBC 2.11 XMIL (4.2-5.4); RDW 15.1 % (11.5-14.5); WBC 2.53 X1000 (4.8-10.8)
[2018-09-27] MEDS: KEPPRA 750 MG in NS 100 ML IV SCH ×2 (05:52→17:47)
[2018-09-27] MEDS: FLAGYL 500 MG/NS 500 MG/100 ML IVPB IV SCH ×3 (05:52→17:48)
--- NOTE | 2018-09-27 07:08 | Diag Imaging Result Doc PS360 ---
EXAM: CHEST-PORTABLE INDICATION: dyspnea TECHNIQUE: One view COMPARISON: 09/25/2018 FINDINGS: Inspiration is suboptimal similar to the previous study. The lungs remain grossly clear. No discrete consolidation is identified. There is no discrete pleural fluid collection or pneumothorax. The cardiomediastinal silhouette and central vasculature are grossly unremarkable. IMPRESSION: Stable low lung volumes. No definite acute pathology, otherwise. Electronically signed by Scott Rubio 09/27/2018 7:06 AM
[2018-09-27 07:11] LABS: BASO# 0.01 X1000 (0.0-0.2); BASO% 0.3 % (0.0-0.8); EOS# 0.03 X1000 (0.0-0.7); EOS% 0.9 % (0.0-10.0); HEMOGLOBIN 6.7 g/dL (12.0-16.0); IMM GRAN# 0.02 X1000 (0.0-0.04); IMM GRAN% 0.6 % (0.0-0.5); LYMPH# 0.48 X1000 (1.2-3.4); LYMPH% 14.8 % (20.5-51.1); MCH 25.4 PG (27-31); MCHC 31.9 g/dL (33-37); MCV 79.5 FL (81-99); MONO# 0.18 X1000 (0.11-0.59); MONO% 5.5 % (1.7-9.3); MPV 10.6 FL (7.4-10.4); NEUT# 2.53 X1000 (1.4-6.5); NEUT% 77.9 % (42.2-75.2); PLT 271 X1000 (130-400); RBC 2.64 XMIL (4.2-5.4); RDW 14.9 % (11.5-14.5); WBC 3.25 X1000 (4.8-10.8)
[2018-09-27] MEDS: AZACTAM 1 GM in NS 50 ML IV SCH ×2 (07:32→14:58)
[2018-09-27 07:33] LABS: BANDS 36 % (0-1); HYPOCHROM 2+; LYMPHS 12 % (21-51); MONO 4 % (1-9); NRBC 2 % (0-0); POIKILOCYTOSIS 2+; SEGS 40 % (42-75); TARGET CELLS 1+
[2018-09-27 07:37] LABS: ALB/GLOB RATIO 0.4; ALBUMIN 1.6 g/dL (3.5-5.0); CALCIUM 10.1 mg/dL (8.8-10.2); CREATININE 1.9 mg/dL (0.5-0.9); MAGNESIUM 2.2 mg/dL (1.5-2.7); POTASSIUM 4.5 mmol/L (3.5-5.1); TOTAL BILIRUBIN 2.53 mg/dL (0.20-1.00); TOTAL PROTEIN 5.3 g/dL (6.3-8.3)
[2018-09-27] MEDS: D5W 1,000 ML IV SCH (09:43)
[2018-09-27] MEDS: DILAUDID IV PRN (13:53)
--- NOTE | 2018-09-27 16:18 | PROGRESS NOTE ---
DATE: 09/27/2018 Ms Fadumo Watt is a 78-year-old black female who had a displaced gastrostomy tube and had some tube feeding placed in her subcutaneous tissue. I removed her gastrostomy tube and drained that tube feeding. I removed the packing today. She had some gastric juice come out of her incision, and a dressing was replaced. She has less swelling involving her anterior abdominal wall. She still is tender across her upper anterior abdominal wall. Clinically, she is improving with IV resuscitation and antibiotics. Her BUN and creatinine are improving daily; they are 41 and 1.9 today. Her total bilirubin is elevated to 2.53. Her plasma lactate has improved daily with resuscitation and antibiotics. Her heart rate is 106, blood pressure 106/54, O2 saturation 94%. She is afebrile. She is receiving Flagyl and Azactam. Her white blood cell counts decreased, her hematocrit has been low at 21%. PLAN: We will continue local wound care and clinical exams of her anterior abdominal wall. The CT scan suggested no intraabdominal contamination. cc: Susan Mari MD
[2018-09-27] MEDS: CLINIMIX E 4.25%-5% SOLUTION 1,000 ML IV SCH (18:12)
--- NOTE | 2018-09-27 18:19 | PROGRESS NOTE ---
DATE: 09/27/2018 INTERVAL HISTORY: No acute events overnight. SUBJECTIVE: She is much more calm today. One of her family member states she was able to recognize him. She does not appear in any acute distress. However, she does not engage in a meaningful conversation. She is itching on her right craniotomy site. VITALS: Temperature 98.8 degrees, pulse 106, respiratory rate 17, blood pressure 106/54. She is maintaining MAP more than 65 mmHg, requiring norepinephrine. She is saturating 93 to 94 percent on room air. PHYSICAL EXAMINATION: She does not appear in any acute distress. Oral cavity, she resists mouth opening. She resists eye opening.Lungs: Air entry bilaterally equal. No wheeze, rhonchi, or crackles. Cardiovascular: S1, S2 normal. No murmur, rub, or gallop. Tachycardic. Appears sinus on rhythm. Abdomen: Firm, excruciatingly tender across the entire abdomen. I could appreciate some crackles. The PEG tube site wound has yellowish drainage which is soaked. No lower extremity edema. She has urine catheter. Input and output suggest she had about 1 L urine output in last 24 hours. LABS: Suggestive of improvement in hemoglobin after blood transfusion. Microcytosis. She does have normal platelet count, hypernatremia, hyperchloremia, improving BUN and creatinine. Microbiology: Blood culture and urine culture did not have any growth to date. Chest x-ray performed today morning had a suboptimal inspiration without any focal infiltrate or edema. ASSESSMENT AND PLAN: 1. Septic shock and lactic acidosis from chemical inflammation and abdominal wall cellulitis from misplaced and dislodged percutaneous endoscopic gastrostomy tube, status post removal of percutaneous endoscopic gastrostomy tube and local wound care by surgical team. Continue intravenous vancomycin, aztreonam, and metronidazole. Continue norepinephrine to maintain MAP more than 65 mmHg. 2. Acute kidney injury in the setting of septic shock. Continue intravenous fluids and change it to D5 water considering hypernatremia, hyperchloremia with close input and output monitoring with Felton catheter. 3. Acute metabolic encephalopathy in the setting of septic shock, improving. 4. Nutrition. I will start her on intravenous Clinimix. According to surgical note, the patient did have some gastric acid leakage on the dressing today, so I will avoid inserting nasogastric tube and feeding to it at the moment. 5. Recent history of right-sided subdural hematoma requiring craniotomy in August 2017 as well as right parietal stroke, status post residual left sided weakness, residual speech abnormality and mental status abnormality. Avoid anticoagulants and aspirin. I will resume atorvastatin once we have enteral access. I will start patient on intravenous Clinimix. 6. Anemia, likely hemodilutional. She also has a component of iron deficiency anemia. Considering microcytosis and according to family history, I will consider starting her on enteral iron when she is more stable. DISPOSITION: I will continue to monitor the patient inside the hospital. More than 30 minutes of critical care time was spent in taking care of this patient. Plan of care discussed with the patient's family at bedside. cc: Kb Palmer MD
[2018-09-28] MEDS: AZACTAM 1 GM in NS 50 ML IV SCH ×4 (00:11→23:16)
[2018-09-28] MEDS: FLAGYL 500 MG/NS 500 MG/100 ML IVPB IV SCH ×5 (00:11→23:17)
[2018-09-28] MEDS: DILAUDID IV PRN ×4 (03:27→23:16)
[2018-09-28 05:04] LABS: BASO# 0.02 X1000 (0.0-0.2); BASO% 0.4 % (0.0-0.8); EOS# 0.01 X1000 (0.0-0.7); EOS% 0.2 % (0.0-10.0); HEMATOCRIT 20.4 % (37.0-47.0); HEMOGLOBIN 6.6 g/dL (12.0-16.0); IMM GRAN# 0.02 X1000 (0.0-0.04); IMM GRAN% 0.4 % (0.0-0.5); LYMPH# 0.68 X1000 (1.2-3.4); LYMPH% 14.3 % (20.5-51.1); MCH 25.4 PG (27-31); MCHC 32.4 g/dL (33-37); MCV 78.5 FL (81-99); MONO# 0.12 X1000 (0.11-0.59); MONO% 2.5 % (1.7-9.3); MPV 10.4 FL (7.4-10.4); NEUT# 3.92 X1000 (1.4-6.5); NEUT% 82.2 % (42.2-75.2); PLT 265 X1000 (130-400); RDW 15.4 % (11.5-14.5); WBC 4.77 X1000 (4.8-10.8)
[2018-09-28 05:27] LABS: ALB/GLOB RATIO 0.5; ALBUMIN 1.7 g/dL (3.5-5.0); CALCIUM 9.2 mg/dL (8.8-10.2); CREATININE 1.3 mg/dL (0.5-0.9); POTASSIUM 3.9 mmol/L (3.5-5.1); TOTAL BILIRUBIN 1.65 mg/dL (0.20-1.00); TOTAL PROTEIN 5.3 g/dL (6.3-8.3)
[2018-09-28] MEDS: D5W 1,000 ML IV SCH ×2 (05:34→10:04)
[2018-09-28] MEDS: KEPPRA 750 MG in NS 100 ML IV SCH ×2 (05:35→17:08)
--- NOTE | 2018-09-28 07:25 | Diag Imaging Result Doc PS360 ---
EXAM: CHEST-PORTABLE 09/28/2018 HISTORY: dyspnea TECHNIQUE: AP portable at 0513 COMMENT: The inspiration is slightly better than on 09/27/2018. Otherwise are has been no significant change. IMPRESSION: Stable chest. Electronically signed by Demetrio Marie 09/28/2018 7:23 AM
[2018-09-28] MEDS ORDERED: NS 250 ML ONE (08:28)
[2018-09-28 08:55] LABS: INR 1.47; PROTIME 18.1 Seconds (11.0-16.0)
[2018-09-28] MEDS: CLINIMIX E 4.25%-5% SOLUTION 1,000 ML IV SCH ×2 (10:04→13:41)
--- NOTE | 2018-09-28 10:47 | PROGRESS NOTE ---
DATE: 09/28/2018 INTERVAL HISTORY: No acute events overnight. She has been off norepinephrine since yesterday. She has not had any fever episode. Her MAP has been more than 65 mmHg. Her hemoglobin is 6.7. Her AILEEN is improving. Her lactate is downtrending. SUBJECTIVE: Patient is alert, not following commands. She resists eye opening as well as mouth opening. OBJECTIVE: VITAL SIGNS: Temperature 98.2 degrees, pulse 97, respiratory rate 18, blood pressure 130/75. She is saturating 100% on room air. PHYSICAL EXAMINATION: General: Not in any acute distress. She resists mouth opening and eye opening. However, her pupils are equal, reacting to light. Lungs: Air entry bilaterally equal. No wheeze, rhonchi, crackles. Cardiovascular: S1, S2 normal. No murmur or gallop. Her tachycardia is improving. Appears sinus rhythm on telemetry. Abdomen: Firm. Excruciatingly tender across entire abdomen with some crepitations on superficial palpation. PEG tube site has yellowish drainage which is soaking the dressing. No bowel sounds. Genitourinary: She has urine catheter. Input and output suggest about 1.7 L urine in the last 24 hours. Neurologic: She is alert, nonverbal. Yesterday she was able to name one of her family members. She has right- sided scalp kayla of recent craniotomy. LABORATORY DATA: Suggestive of stable WBC, stable hemoglobin at 6.6, platelet count 265,000. INR of 1.4. Improving hypernatremia and improving hyperchloremia. Improving acute kidney injury. MICROBIOLOGY: No positive data. IMAGING: Chest x-ray suggests slight improvement in inspiration, but without any significant change. ASSESSMENT AND PLAN: 1. Septic shock and lactic acidosis from suspected abdominal wall cellulitis and chemical inflammation from misplaced PEG tube, status post removal of PEG tube with suctioning of spillover contents by surgical team on 09/25/2018. Continue intravenous vancomycin, aztreonam and metronidazole. She is off norepinephrine. 2. Acute kidney injury, hypernatremia, hyperchloremia, and hyperkalemia at the time of admission, improving. Continue D5 water with close BMP monitoring and Felton catheter for close input and output monitoring. 3. Her acute metabolic encephalopathy in the setting of septic shock is now improving slowly. CT scan head was unremarkable for any acute pathology. 4. 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 I was informed her kayla needed to be removed within 3 to 4 weeks. I will get reports from [facility] to understand the timing of her surgery and accordingly will request kayla removal. Will avoid any anticoagulants. I will resume atorvastatin once we have enteral access. She was not listed to be taking aspirin on medication reconciliation. 5. Anemia with history of iron deficiency. Her current anemia episode is likely hemodilutional. I will start her on enteral iron once we have enteral access. She is status post 1 units of packed red blood cells. I will continue to monitor it. Her tachycardia is improving. 6. Nutrition. Continue intravenous Clinimix. I will appreciate Surgery recommendation about insertion of nasogastric tube once her PEG tube site stops oozing, or replacement of PEG tube in future once her abdominal wall inflammation improves. DISPOSITION: More than 30 minutes of critical care time was spent in taking care of this patient. She appears to be hemodynamically stable and considering her hemodynamics stability, I will consider transferring her to [facility]. Plan of care discussed with the patient's nursing care team. All of their questions have been answered. ADDENDUM: Patient has some cognitive impairment after recent subdural hematoma and CVA. She is currently admitted for septic shock and can not make decisions for herself. Patient's family has been making decisions for her. cc: Kb Palmer MD MTDD
[2018-09-28 12:12] LABS: IRON SATURATION 16 %; TIBC 98 ug/dL; TOTAL IRON 16 ug/dL (49-151); UNBOUND IRON 82 ug/dL (112-346)
[2018-09-28 12:38] LABS: FERRITIN 1051 ng/mL (13-150)
[2018-09-28] MEDS ORDERED: VANCOMYCIN 1 GM/NS 1 GM/250 ML IVPB IV SCH (14:00)
--- NOTE | 2018-09-28 17:24 | PROGRESS NOTE ---
DATE: 09/28/2018 SUBJECTIVE: Ms. Watt still has an opening involving her abdominal wall from a misplaced gastrostomy tube. It appears that she is draining some gastric contents through it onto a dry dressing. She still has some tenderness along her upper abdomen from previous tube feeding being in the subcutaneous tissue. Clinically, she has improved with IV resuscitation and antibiotics and local wound care. It does not appear that she has had any wound healing. She is significantly anemic with a hematocrit of 20. She is receiving some peripheral nutrition because she is not swallowing secondary to a stroke. We need to consider maybe tube feeding versus total parenteral nutrition through now a PICC line. We also need to consider improving her blood count for wound healing. We will continue to treat the wound locally. We will ask our wound care nurse to evaluate it also so that we can keep this fluid off her skin. cc: Susan Mari MD
[2018-09-29] MEDS: CLINIMIX E 4.25%-5% SOLUTION 1,000 ML IV SCH ×3 (04:13→22:33)
[2018-09-29] MEDS: D5W 1,000 ML IV SCH ×3 (04:13→22:32)
[2018-09-29 05:26] LABS: BASO# 0.02 X1000 (0.0-0.2); BASO% 0.4 % (0.0-0.8); EOS# 0.06 X1000 (0.0-0.7); EOS% 1.2 % (0.0-10.0); HEMATOCRIT 20.1 % (37.0-47.0); HEMOGLOBIN 6.5 g/dL (12.0-16.0); IMM GRAN# 0.11 X1000 (0.0-0.04); IMM GRAN% 2.1 % (0.0-0.5); LYMPH# 0.94 X1000 (1.2-3.4); LYMPH% 18.2 % (20.5-51.1); MCH 24.9 PG (27-31); MCHC 32.3 g/dL (33-37); MONO% 1.9 % (1.7-9.3); NEUT# 3.93 X1000 (1.4-6.5); NEUT% 76.2 % (42.2-75.2); PLT 262 X1000 (130-400); RBC 2.61 XMIL (4.2-5.4); RDW 15.7 % (11.5-14.5); WBC 5.16 X1000 (4.8-10.8)
[2018-09-29 05:45] LABS: ALB/GLOB RATIO 0.4; ALBUMIN 1.6 g/dL (3.5-5.0); CALCIUM 8.4 mg/dL (8.8-10.2); CREATININE 1.2 mg/dL (0.5-0.9); POTASSIUM 3.8 mmol/L (3.5-5.1); TOTAL BILIRUBIN 1.32 mg/dL (0.20-1.00); TOTAL PROTEIN 5.2 g/dL (6.3-8.3)
[2018-09-29] MEDS: KEPPRA 750 MG in NS 100 ML IV SCH ×2 (06:03→17:14)
[2018-09-29] MEDS: FLAGYL 500 MG/NS 500 MG/100 ML IVPB IV SCH ×4 (06:03→23:20)
[2018-09-29] MEDS: DILAUDID IV PRN ×4 (07:18→22:38)
[2018-09-29] MEDS: AZACTAM 1 GM in NS 50 ML IV SCH ×3 (08:09→23:21)
[2018-09-29] MEDS ORDERED: NS 500 ML ONE (10:23)
--- NOTE | 2018-09-29 16:18 | PROGRESS NOTE ---
DATE: 09/29/2018 INTERVAL HISTORY: The patient remains off of pressors. Some continued minimal drainage from PEG tube site. Patient remains nonverbal. No obvious sign of active bleeding, but little improvement in blood counts status post transfusion. Mental status approximately stable. One mildly elevated temperature to 100.1, but no true fevers overnight. REVIEW OF SYSTEMS: Unable to obtain secondary to patient mental status. LABORATORY DATA: WBC 5.1, hemoglobin 6.5, hematocrit 20.1, platelets 262,000. Sodium 145, BUN 40, creatinine 1.2, glucose 211, total bilirubin 1.3, AST 17, ALT 14. VITALS: Temperature maximum 100.1 degrees, pulse 97, respirations 24, blood pressure 125/77, O2 saturation 99% on room air. PHYSICAL EXAMINATION: General: No acute distress. Vitals: As above. HEENT: Normocephalic, atraumatic. Slightly dry mucous membranes. Dried oral secretions noted in anterior mouth. Cardiovascular: Regular rate and rhythm. No rubs or gallops noted. Pulmonary: Largely clear to auscultation bilaterally. No wheezing. Good air entry. Abdomen: Soft, nontender, nondistended. Bowel sounds decreased but present. Tube site bandaged, under bandage appears to still be minimal dark drainage, but no erythema or fluctuance or other sign of skin infection. Extremities: Peripheral pulses decreased but intact. No clubbing or cyanosis. Neurologic: Patient is nonverbal. Dense left hemiparesis with essentially no movement. Mildly weak on the right as well, but does oil well shooter hand on command. Psychiatric: Difficult to assess, given patient's nonverbal status, but cooperates with commands as she is able. Skin: No new rashes or lesions identified. ASSESSMENT AND PLAN: 1. Septic shock and lactic acidosis, abdominal wall infection. The patient no longer requiring pressors. Blood pressure now adequate. Last lactate 2.4 and trending down rapidly. Repeat lactate pending. No superficial signs of infection at this point, but may still have deeper infection. Continue antibiotics with aztreonam and Flagyl. Blood cultures and urine cultures no growth. Continue to monitor closely. 2. Acute kidney injury, likely secondary to sepsis as above. Improving rapidly with treatment of underlying issues. No recent baseline but creatinine was 0.8 approximately 3 years ago. Got as high as 4.7, but down to 1.2 now. Continue to monitor. 3. Hyperkalemia, resolved with improvement in kidney function. 4. Hypernatremia, now resolved. Continue to monitor. 5. Anemia. Patient with chronic anemia, but worsening after admission from 7.6to 5.6. Transfused and came up to 6.8, but remained low. Giving another unit of blood today. No overt signs or symptoms of ongoing bleeding. Monitor closely. 6. Recent subdural bleeds x2, cerebrovascular accident, left hemiparesis, likely functional quadriplegia. The patient with recent subdural bleeds x2 with evacuation. Also had ischemic stroke during the treatment of that. Has a dense paresis of the entire left side and is quite weak on the right. Suspect she is going to be total care indefinitely. Also, nonverbal secondary to above. High risk for aspiration pneumonia, but none so far. Keep head of bed elevated as much as possible. 7. Hyperlipidemia. We will restart home statin prior to discharge. 8. Hypertension. Holding home antihypertensives in the setting of shock. If blood pressure becomes consistently and significantly elevated, we will restart some of her home medications. DISPOSITION: No longer requiring pressors, but nutrition an issue. If able, may place NG tube in the near future and start tube feeds. Will likely require replacement tube at some point, but Surgery wishes to defer for now. We will see how she does over the next few days. OVERALL PROGNOSIS: Likely poor. ANNA
[2018-09-29 16:57] LABS: HEMOGLOBIN 7.4 g/dL (12.0-16.0)
[2018-09-30] MEDS: DILAUDID IV PRN ×4 (02:32→23:57)
[2018-09-30] MEDS: CLINIMIX E 4.25%-5% SOLUTION 1,000 ML IV SCH ×2 (05:12→21:57)
[2018-09-30] MEDS: KEPPRA 750 MG in NS 100 ML IV SCH ×2 (05:13→17:38)
[2018-09-30] MEDS: FLAGYL 500 MG/NS 500 MG/100 ML IVPB IV SCH ×4 (05:13→23:19)
[2018-09-30 06:21] LABS: BASO# 0.03 X1000 (0.0-0.2); BASO% 0.4 % (0.0-0.8); EOS# 0.13 X1000 (0.0-0.7); EOS% 1.9 % (0.0-10.0); HEMATOCRIT 21.9 % (37.0-47.0); HEMOGLOBIN 7.1 g/dL (12.0-16.0); IMM GRAN# 0.15 X1000 (0.0-0.04); IMM GRAN% 2.2 % (0.0-0.5); LYMPH# 1.29 X1000 (1.2-3.4); LYMPH% 19.1 % (20.5-51.1); MCH 25.1 PG (27-31); MCHC 32.4 g/dL (33-37); MCV 77.4 FL (81-99); MONO# 0.37 X1000 (0.11-0.59); MONO% 5.5 % (1.7-9.3); MPV 10.2 FL (7.4-10.4); NEUT# 4.79 X1000 (1.4-6.5); NEUT% 70.9 % (42.2-75.2); PLT 244 X1000 (130-400); RBC 2.83 XMIL (4.2-5.4); RDW 15.7 % (11.5-14.5); WBC 6.76 X1000 (4.8-10.8)
[2018-09-30 06:39] LABS: CALCIUM 8.3 mg/dL (8.8-10.2); CREATININE 1.1 mg/dL (0.5-0.9); POTASSIUM 3.9 mmol/L (3.5-5.1)
[2018-09-30] MEDS: AZACTAM 1 GM in NS 50 ML IV SCH ×3 (07:32→22:50)
[2018-09-30] MEDS ORDERED: VANCOMYCIN 1,300 MG in NS 250 ML IV SCH (08:00)
[2018-09-30] MEDS ORDERED: VANCOMYCIN 1 GM/NS 1 GM/250 ML IVPB IV SCH (14:00)
[2018-09-30 14:13] LABS: HEMATOCRIT 21.2 % (37.0-47.0); HEMOGLOBIN 6.8 g/dL (12.0-16.0)
--- NOTE | 2018-09-30 14:19 | PROGRESS NOTE ---
DATE: 09/30/2018 INTERVAL HISTORY: The patient remains off pressors. Some increased drainage from her PEG tube site. Patient remains nonverbal with dense left hemiparesis. No acute events overnight. REVIEW OF SYSTEMS: Unable to obtain secondary to patient mental status. LABORATORY: WBC 6.7, hemoglobin 7.1, hematocrit 21.9, and platelets 244,000. Sodium 143, potassium 3.9, BUN 46, creatinine 1.1, and glucose 144. VITALS: T-max 100 degrees, pulse 96, respirations 20, blood pressure 137/61, and O2 saturation 98% on room air. PHYSICAL EXAMINATION: General: No acute distress. Vitals: As above. HEENT: Normocephalic, atraumatic. Moist mucous membranes. Cardiovascular: Regular rate and rhythm. No rubs or gallops noted. Pulmonary: Largely clear to auscultation bilaterally. No wheezing and good air entry. Abdomen: Soft, nontender, and nondistended. Bowel sounds remain decreased but present. Tube site bandaged. Under bandage, there is significant dark to green drainage. Skin still looks pretty good. Extremities: Peripheral pulses decreased but intact. No clubbing or cyanosis. Neurologic: Patient nonverbal and with dense left hemiparesis. Mildly weak on the right as well, although somewhat improved today and does collar pointer on command. Psychiatric: Somewhat limited. ASSESSMENT: Patient is nonverbal, but remains cooperative with simple commands.Skin: No new rashes or lesions identified. ASSESSMENT AND PLAN: 1. Septic shock and lactic acidosis, abdominal wall infection. Patient no longer requiring pressors. Blood pressure looking pretty good. Lactate still minimally elevated but trending down. Continue antibiotics with aztreonam and Flagyl. Blood cultures and urine cultures negative. As her lactate is improving but slowly, we will give her a little more fluid to see if that will help some. 2. Acute kidney injury likely secondary to sepsis as above. She has improved rapidly. Now down to 1.1, which is likely nearing her baseline. 3. Hyperkalemia improved with improvement in kidney function. 4. Hyponatremia also resolved. Changing fluids as above. Continue to monitor. 5. Anemia. Patient with chronic anemia, but worsened after admission from 7.6 to 5.6. Transfusion gets to 6.8, but remains low. He had another unit yesterday and did come up to 7.4. It is down slightly to 7.1 today, but no need for another transfusion at this point. There have been no signs or symptoms of active bleeding. Continue to monitor and consider further transfusion if needed. 6. Recent subdural bleed x2, CVA, left hemiparesis, likely functional quadriplegia. The patient with recent subdural x2, also with ischemic stroke, likely to be total care indefinitely. Remains high risk for aspiration pneumonia. 7. Hyperlipidemia. We will restart home statin, and we are able to give her p.o. medications. 8. Hypertension. Holding home antihypertensives in the setting of shock initially. Blood pressure has been fairly normal so we will continue holding them for now.
[2018-09-30] MEDS: NS 1,000 ML IV SCH (14:51)
--- NOTE | 2018-09-30 18:09 | PROGRESS NOTE ---
DATE: 09/30/2018 SUBJECTIVE: Ms. Fadumo Watt is still draining some gastric contents from her gastrostomy site, anterior abdominal wall. She still has some edema involving her anterior abdominal wall, especially right flank. She is receiving some peripheral nutrition. We feel that the drainage coming from her gastrostomy site is becoming less. ASSESSMENT AND PLAN: We are treating the wound with an ostomy bag at this time to try to protect her skin. It is not draining much. Continue to watch her wound daily. At some point we need to address more long-term nutrition. cc: Susan Mari MD
[2018-10-01] MEDS: CLINIMIX E 4.25%-5% SOLUTION 1,000 ML IV SCH (03:06)
[2018-10-01] MEDS: FLAGYL 500 MG/NS 500 MG/100 ML IVPB IV SCH ×3 (05:20→18:00)
[2018-10-01] MEDS: KEPPRA 750 MG in NS 100 ML IV SCH ×2 (05:20→18:00)
[2018-10-01 05:53] LABS: BASO# 0.04 X1000 (0.0-0.2); BASO% 0.6 % (0.0-0.8); EOS# 0.08 X1000 (0.0-0.7); EOS% 1.2 % (0.0-10.0); HEMATOCRIT 24.9 % (37.0-47.0); HEMOGLOBIN 8.3 g/dL (12.0-16.0); IMM GRAN# 0.16 X1000 (0.0-0.04); IMM GRAN% 2.3 % (0.0-0.5); LYMPH# 1.28 X1000 (1.2-3.4); LYMPH% 18.7 % (20.5-51.1); MCH 26.4 PG (27-31); MCHC 33.3 g/dL (33-37); MCV 79.3 FL (81-99); MONO# 0.32 X1000 (0.11-0.59); MONO% 4.7 % (1.7-9.3); MPV 10.4 FL (7.4-10.4); NEUT# 4.98 X1000 (1.4-6.5); NEUT% 72.5 % (42.2-75.2); PLT 225 X1000 (130-400); RBC 3.14 XMIL (4.2-5.4); RDW 16.1 % (11.5-14.5); WBC 6.86 X1000 (4.8-10.8)
[2018-10-01 06:04] LABS: AGAP 10; BUN 39 mg/dL (8-22); CALCIUM 7.7 mg/dL (8.8-10.2); CHLORIDE 114 mmol/L (98-107); COSMO 299; CREATININE 0.8 mg/dL (0.5-0.9); ESTIMATED GFR > 60; GLUCOSE 120 mg/dL (70-104); POTASSIUM 3.9 mmol/L (3.5-5.1); SODIUM 145 mmol/L (136-145); TCO2 21 mmol/L (25-35)
[2018-10-01 06:52] LABS: EOS 1 % (1-10); LYMPHS 20 % (21-51); MONO 5 % (1-9); SEGS 74 % (42-75)
[2018-10-01] MEDS: NS 1,000 ML IV SCH (08:14)
[2018-10-01] MEDS: AZACTAM 1 GM in NS 50 ML IV SCH ×2 (08:14→16:30)
[2018-10-01] MEDS: DILAUDID IV PRN ×3 (08:22→21:51)
--- NOTE | 2018-10-01 10:37 | Diag Imaging Result Doc PS360 ---
EXAM: CT ABD/PELVIS W/IV CONT ONLY 10/01/2018 HISTORY: increased abd pain/swelling. recent dislodged PEG. TECHNIQUE: This exam was performed using automated exposure control, adjustment of mA or kV according to patient size, and/or use of iterative reconstruction technique. COMMENT: The current study is compared with the previous examination of 09/25/2018. There is minimal atelectasis in the posterior costophrenic sulci of the lower lobes which has worsened since the previous study. There is generalized anasarca. This was also present previously. There is soft tissue gas throughout the subcutaneous fat over the anterior and lateral abdomen bilaterally. This was worse at the time of the previous study. The fluid collection which was previously demonstrated adjacent to the gastrostomy tube, at that time present in the subcutaneous fat, is no longer identifiable. The stomach is not distended. The liver, spleen, adrenal glands, pancreas, and gallbladder are stable in appearance. There is a large calculus in the right collecting system measuring over 19 mm in size which was also present previously. There is no evidence of bowel obstruction. There is no evidence of free fluid or free air within the abdomen. Pelvis there is a Felton catheter in the urinary bladder. There is some gas within the bladder. There is a small amount of free pelvic fluid. There is some gas and fluid in the rectum. The pelvis is otherwise unchanged in appearance since the previous study. There are severe degenerative disc and facet changes in the lumbar spine particularly at the L5-S1 level. There is no evidence of acute bony abnormality. IMPRESSION: Subcutaneous fluid and gas over the abdomen which is probably residual from malposition of the gastrostomy catheter as demonstrated on the previous study. The possibility of cellulitis cannot be excluded however and clinical correlation is recommended. Electronically signed by Demetrio Marie 10/01/2018 10:34 AM
[2018-10-01] MEDS ORDERED: STERILE WATER INJ. INJ ONE (13:15)
[2018-10-01] MEDS ORDERED: CATHFLO IV ONE (13:15)
--- NOTE | 2018-10-01 15:00 | GASTROENTEROLOGY CONSULTATION ---
DATE: 10/01/2018 REASON FOR CONSULTATION: Request for possible PEG tube replacement. HISTORY OF PRESENT ILLNESS: This is a 78-year-old female who was recently in [facility] after a fall and developed a subdural bleed with evacuation performed. After procedure, she developed left hemiparesis and speech deficit. She remained in the hospital and then was discharged to [facility]. While there, she pulled her feeding tube out. She came in to the hospital and has been in the hospital since 09/25/2018. She has had swelling of the abdominal area and drainage from the previous PEG tube site. She had a CT scan done today that showed subcutaneous fluid and gas over the abdomen most likely residual from malposition of gastrostomy catheter and the possibility of cellulitis. She is also being followed by Dr. Mari. At the time of my evaluation, the patient had a [id number] at the bedside. Information has been obtained from her. PAST MEDICAL HISTORY: 1. Recent subdural hematoma status post evacuation. 2. CVA. 3. Hypertension. 4. Hyperlipidemia. 5. Recent dislodgement of PEG tube. PAST SURGICAL HISTORY: 1. G-tube placement. 2. Craniotomy x2. ALLERGIES: 1. Penicillin causing itching. 2. Levaquin causing nausea and vomiting. HOME MEDICATIONS: 1. Tylenol 1000 mg per PEG tube every 6 hours as needed. 2. Norvasc 5 mg daily. 3. Lipitor 40 mg daily. 4. Celebrex 200 mg daily. 5. Vitamin D3 5000 units daily. 6. Folic acid 400 mg daily. 7. Lamar 5/325 every 4 hours as needed. 8. She was receiving Jevity 1.5 mg per her feeding tube. 9. Keppra 750 mg twice a day. 10. Loratadine 10 mg daily. 11. Melatonin 5 mg every night as needed. 12. Trazodone 100 mg at night as needed. SOCIAL HISTORY: Recently residing in a rehab facility after her discharge from [facility]. No reported alcohol, tobacco or drug use. REVIEW OF SYSTEMS: Per history of present illness. PHYSICAL EXAMINATION: Vital Signs: Temperature 98.1 degrees, pulse 88, respirations 20, blood pressure 127/61. General: Patient was resting with eyes closed. She did open her eyes with stimulus. She followed commands on the right side with good right hand nursery technician. No movement on the left side. HEENT: She has kayla on the top of her head from recent surgery. Cardiovascular: Regular rate and rhythm. Pulmonary: Lung sounds essentially clear. Abdomen: Soft, nontender. She does have some redness and distention, worse on the right side. Currently, she has an ostomy bag over the previous PEG tube site. There is greenish drainage noted. Extremities: No lower extremity edema noted. LABORATORY DATA: Hematology 6.86, hemoglobin 8.3, hematocrit 24.9, MCV 79.3, platelets 225,000. Chemistry: Sodium 145, potassium 3.9, chloride 114, BUN 39, creatinine 0.8, glucose 120, calcium 7.7. Abdominal pelvis CT scan shows subcutaneous fluid and gas over the abdomen, probably residual from malposition of the gastrostomy catheter and possibility of cellulitis. ASSESSMENT AND PLAN: 1. Recent fall and subdural bleed requiring evacuation. 2. Sepsis, abdominal wall infection. Patient is on antibiotics. 3. Dislodgement of PEG tube with possible cellulitis. Continue current management. Patient has an ostomy bag over the site and is draining greenish drainage. Would recommend a culture of that abdominal wound. 4. Nutritional requirement. She is currently receiving Clinimix. We would not be able to replace the feeding tube until her infection is resolved. Would recommend NG tube feeding in the interim. I have discussed this case with Dr. Galicia. We will continue to follow and further plans will be made as needed. Thank you for this consultation. Dictated by HONEY Lopez for Shaji Galicia MD cc: HONEY Smith MD
[2018-10-01] MEDS: VANCOMYCIN 1,300 MG in NS 250 ML IV SCH (15:59)
--- NOTE | 2018-10-01 17:13 | PROGRESS NOTE ---
DATE: 10/01/2018 INTERVAL HISTORY: The patient with increased lower abdominal edema. Not really significantly warm or erythematous but with dense pitting edema. She remains afebrile, green brown drainage continues from site of previous PEG tube. No other acute events. REVIEW OF SYSTEMS: Unable to obtain secondary to patient mental status. LABS: WBC 6.8, hemoglobin 8.3, hematocrit 24.9, platelets 225,000. Sodium 145, potassium 3.9, bicarb 21, BUN 39, creatinine 0.8, glucose 120. IMAGING: CT abdomen, pelvis with subcutaneous fluid and gas over the abdomen which is favored to be residual from malposition of the gastrostomy catheter. Cellulitis not excluded. VITALS: T-max 99.7 degrees, pulse 84, respiration 16, blood pressure 119/66, O2 saturation 99 % room air. EXAM: General: No acute distress vitals as above. HEENT: Normocephalic, atraumatic, moist mucous membranes . Cardiovascular: Regular rate, rhythm, no murmurs, rubs, or gallops noted . Pulmonary: Clear to auscultation bilaterally, no wheezing, rales , rhonchi. Abdomen: Soft, nondistended, bowel sounds remain decreased but present. Tube site with ostomy bag over it green to brown drainage in bag below the level of the wound. Her abdomen has a dense pitting edema. Mildly tender to palpation not clearly warm, erythematous. Extremities: Peripheral pulses intact. No clubbing, cyanosis, trace lower extremity edema bilaterally. Neurologic: Patient with essentially stable dense left hemiparesis and nonverbal. No new focal deficits. Psychiatric: Exam limited but slightly less cooperative today. Skin: Abdominal changes above otherwise no new rashes or lesions. ASSESSMENT AND PLAN: 1. Septic shock, lactic acidosis, abdominal wall infection. Patient has been off pressors for several days with stable blood pressure, lactic acid only minimally elevated and trending down on antibiotics with aztreonam and Flagyl and vancomycin. Some ongoing drainage from the percutaneous endoscopic gastrostomy site as above. Blood cultures, urine cultures negative. Continue current antibiotics for now. If patient fails to improve over the next day or 2 then may consider infectious disease consult. 2. Acute kidney injury likely secondary to sepsis as above now down to 0.8 which is likely baseline. 3. Hyperkalemia improved with improving kidney function. 4. Hyponatremia resolved. 5. Anemia trended down as low as 5.6 has received 3 total units of blood is up to 8.3 today which is an appropriate improvement, will monitor. No clear signs or symptoms of active bleeding. 6. Recent subdural bleed x2, cerebrovascular accident, left hemiparesis, likely functional quadriplegia. Patient with recent subdural x2, also ischemic stroke approximately the same time. Family reports that she would occasionally give 1 or 2 word answers or even short sentences prior to admission but that was about the limit of her recovery. She required assistance with all activities of daily living which is likely to be indefinite but may still see some improvement in her mental statu. 7. Hyperlipidemia. When patient able to take p.o. will restart home statin. 8. Hypertension. Holding home medications given septic shock on admission and essentially normotensive since then. 9. Possible metabolic encephalopathy. Patient with baseline which is poor but was reportedly occasionally verbal at rehab prior to admission. Has been completely nonverbal here. Continue to treat underlying issues and monitor. 10. Nutrition. Discussed with GI the possibility of another feeding tube. They would want her infection wound to be completely resolved before they even consider it, that is likely to be prolonged process so will go ahead and start TPN for now, the goal eventually be for her to get another feeding tube. 11. Disposition. Still working getting her infection and drainage under control. Starting total parenteral nutrition as above. If she improves then may be able go to facility early next week.
[2018-10-01] MEDS ORDERED: D10W 1,000 ML IV PRN (20:00)
[2018-10-01] MEDS ORDERED: TPN ELECTROLYTES 20 ML, MAGNESIUM SULFATE 4 MEQ, POTASSIUM CHLORIDE 10 MEQ, POTASSIUM P... IV SCH ×9 (20:00)
[2018-10-02] MEDS: AZACTAM 1 GM in NS 50 ML IV SCH ×3 (00:30→17:26)
[2018-10-02] MEDS: DILAUDID IV PRN ×5 (01:22→20:26)
[2018-10-02] MEDS: FLAGYL 500 MG/NS 500 MG/100 ML IVPB IV SCH ×4 (01:40→18:40)
[2018-10-02] MEDS: LIPOSYN 20% 250 ML IV SCH (03:51)
[2018-10-02] MEDS: NS 1,000 ML IV SCH (04:16)
[2018-10-02] MEDS: KEPPRA 750 MG in NS 100 ML IV SCH ×2 (06:38→18:03)
[2018-10-02 07:17] LABS: BASO# 0.05 X1000 (0.0-0.2); BASO% 0.6 % (0.0-0.8); EOS# 0.12 X1000 (0.0-0.7); EOS% 1.6 % (0.0-10.0); HEMATOCRIT 27.7 % (37.0-47.0); IMM GRAN# 0.32 X1000 (0.0-0.04); IMM GRAN% 4.1 % (0.0-0.5); LYMPH# 1.67 X1000 (1.2-3.4); LYMPH% 21.6 % (20.5-51.1); MCH 26.2 PG (27-31); MCHC 32.5 g/dL (33-37); MCV 80.5 FL (81-99); MONO# 0.42 X1000 (0.11-0.59); MONO% 5.4 % (1.7-9.3); MPV 10.7 FL (7.4-10.4); NEUT# 5.15 X1000 (1.4-6.5); NEUT% 66.7 % (42.2-75.2); PLT 248 X1000 (130-400); RBC 3.44 XMIL (4.2-5.4); RDW 16.9 % (11.5-14.5); WBC 7.73 X1000 (4.8-10.8)
[2018-10-02 07:32] LABS: AGAP 11; BUN 29 mg/dL (8-22); CHLORIDE 116 mmol/L (98-107); CHOLESTEROL 74 mg/dL (0-200); COSMO 298; CREATININE 0.8 mg/dL (0.5-0.9); ESTIMATED GFR > 60; GLUCOSE 130 mg/dL (70-104); GOT 16 U/L (10-30); MAGNESIUM 2.1 mg/dL (1.5-2.7); PHOSPHORUS 3.4 mg/dL (2.7-4.5); POTASSIUM 4.2 mmol/L (3.5-5.1); PREALBUMIN 7.6 mg/dL (20-40); SODIUM 146 mmol/L (136-145); TCO2 19 mmol/L (25-35); TRIGLYCERIDES 119 mg/dL (35-135)
[2018-10-02 07:44] LABS: ANISOCYTOSIS 2+; BANDS 3 % (0-1); BASO 1 % (0-1); EOS 2 % (1-10); LYMPHS 20 % (21-51); MICROCYTOSIS 2+; MONO 7 % (1-9); NRBC 2 % (0-0); SEGS 64 % (42-75)
[2018-10-02 07:45] LABS: LARGE PLATELETS OCCASIONAL
--- NOTE | 2018-10-02 10:10 | GENERAL SURGERY PROGRESS NOTE ---
DATE: 10/02/2018 SUBJECTIVE: Ms. Watt is semi responsive. She is afebrile, heart rate 82, blood pressure 144/61. She has had only 20 mL out her gastrostomy bag. The CAT scan from yesterday shows a decrease in air compared to the study of 09/25, and a decrease in fluid as well. So, she still remains somewhat tender, but the CAT scan certainly indicates improvement in the subcutaneous infectious and abscess process. She is afebrile. Her white count is normal. Will continue with IV nutrition and antibiotic therapy. cc: Toby Aguilar MD
[2018-10-02] MEDS ORDERED: 1/2 NS 1,000 ML IV SCH (13:15)
--- NOTE | 2018-10-02 14:30 | PROGRESS NOTE ---
DATE: 10/02/2018 INTERVAL HISTORY: The patient is roughly stable, still with pretty significant lower abdominal edema. Largely brownish drainage from site of previous PEG tube, ongoing. No acute events overnight. REVIEW OF SYSTEMS: Unable to obtain secondary to the patient's mental status. LABS: WBC 7.7, hemoglobin 9, hematocrit 27.7, platelets 248. Sodium 146, potassium 4.2, bicarbonate 19, BUN 29, creatinine 0.8, glucose 135. VITALS: T-max 99.4 degrees, pulse 76, respirations 16, blood pressure 126/61, O2 saturations 97% on room air. PHYSICAL EXAMINATION: General: No acute distress. Chronically ill appearing. Vitals: As above. HEENT: Normocephalic, atraumatic. Moist mucous membranes. Neck: No cervical adenopathy. Cardiovascular: Regular rate and rhythm. No murmurs, rubs or gallops noted. Pulmonary: Clear to auscultation bilaterally. No wheezing, rales or rhonchi. Abdomen: Soft, superiorly nondistended. Bowel sounds remain decreased, but present. Tube site with ostomy bag over it with large brown liquid drainage, very lower end of her abdomen with essentially stable dense pitting edema. It remains mildly tender to palpation throughout. A little pink, but not clearly erythematous. Extremities: Peripheral pulses intact. No clubbing, cyanosis. Trace lower extremity edema, unchanged. Patient with stable dense left hemiparesis, but able to attempt a few words which are difficult to understand, but appropriate to the question asked. Was able to wiggle her left foot slightly, but strength was extremely poor. Not sufficient to move the limb. No new focal deficits. Continues to move her right arm pretty well and follows commands with that well. Psychiatric: The patient remains largely nonverbal, but was able to tell me her name today which is an improvement. Continues to cooperate well with right upper arm. A little bit of toe wiggling with the feet. Skin: Abdominal changes as above, but no new rashes or lesions. ASSESSMENT AND PLAN: 1. Septic shock, lactic acidosis, abdominal wall infection. The patient has been off pressors for several days with good blood pressure. The patient on antibiotics with aztreonam, Flagyl and vancomycin. Some ongoing drainage from the percutaneous endoscopic gastrostomy tube site. Blood cultures, urine cultures negative. Culture of the drainage from her site growing gram- positive cocci. Will await finalization of that. Continue antibiotics as above and monitor. A repeat CT obtained because of ongoing dense edema of the lower abdomen, but it just showed continued subcutaneous fluid and gas over the lower abdomen, which was favored to represent sequela from malposition of previous gastrostomy tube. 2. Acute kidney injury, resolved. 3. Hyperkalemia, resolved. 4. Hyponatremia, resolved. 5. Anemia. The patient trended down as low as 5.6. Has received a total of 3 units of packed red blood cells. Hemoglobin/hematocrit appears to be trending up on its own at this point. No need for further transfusion. We will continue to monitor. 6. 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 Patient with recent subdural times 2. Also ischemic stroke at approximately the same time. Prior to admission, we will reportedly give 1 or 2 word answers or occasionally short sentence. Requires assistance of all activities of daily living. The only limb she can move well is her right upper, but not sufficiently to feed, bathe or otherwise take care of herself. Likely to require assistance with all activities of daily living indefinitely. 7. Hyperlipidemia. When able to give the patient oral, we will start statin, but that is likely to be a prolonged period. 8. Hypertension. Holding home medications given septic shock on admission. Blood pressure has been well controlled off medications since then. 9. Likely metabolic encephalopathy. Patient with baseline which is fairly poor, but does appear to be becoming more responsive and able to attempt a few words. Continue to monitor. 10. Nutrition: Gastroenterology believes that this wound needs to stop draining and heal for consideration of another tube placement. Discussed with family, possibly a nasogastric tube, but they state that whenever she has had one in the past, she has had to be restrained or she rips it out fairly quickly. Given this, it is likely to take quite some time to heal. Given patient's poor tolerance of an nasogastric tube in the past, we have gone ahead and started her on total parenteral nutrition. The eventual goal will be for her to get another permanent feeding tube. 11. Disposition: Ongoing difficulty with getting infection and drainage under control. No signs of systemic infection, and a lot of this may be simply because of the tissue damage and edema introduced while her gastrostomy tube was malpositioned, and surgery thinks this is improved from admission so will hold off on ID consult for now. Eventual plan is to go back to rehabilitation. ANNA
[2018-10-02] MEDS: VANCOMYCIN 1,300 MG in NS 250 ML IV SCH (15:39)
--- NOTE | 2018-10-02 19:41 | GASTROENTEROLOGY PROGRESS NOTE ---
DATE: 10/02/2018 Ms. Watt is resting comfortably. She was mumbling incomprehensibly although she said no to any abdominal pain or her any complaints. She is currently on TPN. She still has drainage bag on her old PEG site and has a brownish fluid in it. Does not appear to be any bleeding from there.Vital signs: Temperature 97.4 degrees, pulse 76, breathing 16, blood pressure 147/58. Abdomen again has got a PEG site covered with drainage bag. Abdomen otherwise appropriately tender. Bowel sounds audible. LABORATORIES: Reviewed which showed gram-positive cocci on the culture sent from the PEG site. IMPRESSION: Percutaneous endoscopic gastrostomy site cellulitis, anterior abdominal wall cellulitis at the old percutaneous endoscopic gastrostomy site. At this point she is currently on total parenteral nutrition for her nutritional support. We did entertain the thought of putting an NG feeding tube but as per family's request and after discussion with them it was decided to continue TPN because she has been pulling her NG tube out and unfortunately another PEG tube cannot be placed until her infection or/cellulitis is treated. I have explained finding, plan to the patient. I am not sure she understood or not. Case was also discussed with Dr. Ybarra. cc: Shaji Galicia MD
[2018-10-02] MEDS ORDERED: TPN ELECTROLYTES 20 ML, MAGNESIUM SULFATE 4 MEQ, POTASSIUM CHLORIDE 10 MEQ, POTASSIUM P... IV SCH ×8 (20:00)
[2018-10-03] MEDS: AZACTAM 1 GM in NS 50 ML IV SCH ×3 (00:12→17:16)
[2018-10-03] MEDS: DILAUDID IV PRN ×7 (00:12→21:09)
[2018-10-03] MEDS: FLAGYL 500 MG/NS 500 MG/100 ML IVPB IV SCH ×4 (01:50→19:09)
[2018-10-03] MEDS: TPN ELECTROLYTES 20 ML, MAGNESIUM SULFATE 4 MEQ, POTASSIUM CHLORIDE 10 MEQ, POTASSIUM P... IV SCH ×8 (02:36)
[2018-10-03] MEDS: KEPPRA 750 MG in NS 100 ML IV SCH ×2 (05:16→18:19)
[2018-10-03] MEDS: LIPOSYN 20% 250 ML IV SCH (05:17)
[2018-10-03 06:54] LABS: ESTIMATED GFR > 60
[2018-10-03 06:57] LABS: AGAP 8; BUN 22 mg/dL (8-22); CALCIUM 8.1 mg/dL (8.8-10.2); CHLORIDE 123 mmol/L (98-107); COSMO 306; CREATININE 0.7 mg/dL (0.5-0.9); GLUCOSE 174 mg/dL (70-104); MAGNESIUM 2.1 mg/dL (1.5-2.7); PHOSPHORUS 3.3 mg/dL (2.7-4.5); POTASSIUM 4.3 mmol/L (3.5-5.1); SODIUM 150 mmol/L (136-145); TCO2 19 mmol/L (25-35)
--- NOTE | 2018-10-03 08:46 | GENERAL SURGERY PROGRESS NOTE ---
DATE: 10/03/2018 It is 8:30 in the morning. She is afebrile, heart rate 90, blood pressure 144/74. She is still runner some in the right side of the abdomen but there is no increase in erythema or swelling or tenderness. She has really put out almost nothing in her bag, which is good. Her white count is not checked today. Her sodium and chloride are up pretty high today. She may need some free water. Perhaps by tomorrow, her bag can be left off as it appears that her gastrostomy must be closing. We will continue with TPN. cc: Toby Aguilar MD
[2018-10-03] MEDS: D5W 1,000 ML IV SCH (13:37)
--- NOTE | 2018-10-03 13:39 | GASTROENTEROLOGY PROGRESS NOTE ---
DATE: 10/03/2018 SUBJECTIVE: At the time of my visit, she was being given a bath. Ostomy bag noted to have only a small amount of brownish colored drainage intact. Still has some swelling, worse on the right side, with some tenderness. OBJECTIVE: Vital Signs: Temperature 97.9 degrees, pulse 84, respirations 16, blood pressure 149/60. Abdomen with some swelling, worse on the right side. Ostomy bag intact over previous PEG tube site with only a small amount of brownish drainage noted. Some tenderness, right abdomen. Laboratory: Hematology: WBC 7.73, hemoglobin 9.0, hematocrit 27.7, MCV 80.5. Chemistry: Sodium 150, potassium 4.3, chloride 123, CO2 of 19, BUN 22, creatinine 0.7, glucose 174. ASSESSMENT AND PLAN: Recent dislodgement of percutaneous endoscopic gastrostomy tube causing cellulitis. Continue current management. We will not be able to replace her percutaneous endoscopic gastrostomy tube until infection and cellulitis have resolved. Continue total parenteral nutrition and lipids. There was discussion of possible nasogastric tube placement for feeding but the family did not want that done due to patient pulling her tubes out in the past. Will continue to follow and further plans will be made according to her progress. I have discussed this case with Dr. Galicia. Dictated by HONEY Lopez for Shaji Galicia MD cc: HONEY Smith MD
--- NOTE | 2018-10-03 14:54 | PROGRESS NOTE ---
DATE: 10/03/2018 INTERVAL HISTORY: Patient now status roughly stable. Output from her PEG tube site seems to be decreasing. With no acute events overnight. REVIEW OF SYSTEMS: Unable obtain secondary patient mental status. LABS: Sodium 150, potassium 4.3, chloride 123, bicarb 19, BUN 22, creatinine 0.7, glucose 164- 197. VITALS: T-max 99, pulse 84, respirations 16, blood pressure 149/62 O2 saturation 94. PHYSICAL EXAMINATION: General: No acute distress chronically ill appearing. Vitals: As above. HEENT: Normocephalic, atraumatic, moist mucous membranes, no cervical adenopathy. Cardiovascular: Regular rate and rhythm. No rubs or gallops noted. Pulmonary: Clear to auscultation bilaterally. No wheezing, rales, or rhonchi. Abdomen: Soft and nondistended superiorly, inferior abdomen continues have intense pitting edema with mild tenderness. Bowel sounds remain decreased but present. Tube site with ostomy bag with almost no drainage. Extremities: Peripheral pulses intact. No clubbing, cyanosis, trace lower extremity edema unchanged. Neurologic: The patient with stable dense left hemiparesis , fair movement of the right upper extremity but quite weak with the right lower as well. Occasionally attempts to speak but words are completely unintelligible. No new focal deficits. Psychiatric: Patient remains nonverbal for most part, occasionally able to speak her name. Continues to cooperate with right upper arm and with minimal movement of the toes bilaterally. Skin: No new rashes or lesions. ASSESSMENT AND PLAN: 1. Septic shock, lactic acidosis, abdominal wall infection. Patient required pressors initially but not for several days. Patient on antibiotics with aztreonam, vanc. Drainage from her percutaneous endoscopic gastrostomy tube site is slowing down significantly although she still has marked edema and tenderness of the lower abdomen. Blood and urine cultures negative. 2. Acute kidney injury resolved. 3. Hyperkalemia resolved. 4. Hypernatremia worsened over the last couple days. Started some half-normal saline yesterday with sodium still trended up. Will change to D5W low rate and see if we can get her sodium to correct. 5. Anemia, patient hemoglobin trended as low as 5.6. Has received total of 3 packed red blood cells. Hemoglobin and hematocrit stable to improved. 6. Recent subdural x2, cerebrovascular accident, left hemiparesis, likely functional quadriplegia. Prior to admission was reported giving 1 to 2 word answers and occasionally short distances. Has required assistance with all activities of daily living which is likely continue foreseeable future. 7. Hyperlipidemia, unable to give patient pills, will restart statin. 8. Hypertension, blood pressure has hypertensive by history but for most hospitalization blood pressure has been low normal. Starting creep up slightly now. If that trend continues then may have to restart some her home antihypertensives tomorrow. 9. Possible metabolic encephalopathy. Patient with baseline which is fairly poor but responsiveness has improved over the last several days somewhat. Reportedly able to give single word answers fairly consistently and occasionally speak small sentences prior to admission. 10. Nutrition on total parenteral nutrition for now pending wound healing and improvement of edema so that GI can place feeding tube. Considered nasogastric tube but discussed with family and they stated that she had been had difficulty tolerating NG tubes in the past and generally pulled them if she is not restrained. At that request we did TPN instead. Eventual goals for her to get another permanent feeding tube. 11. Disposition. Drainage actually quite a bit improved although her edema is improving very slowly. On TPN. If her drainage continues to improve and her edema continues to improve slowly then may be ready for discharge to LTAC in the next 48 to 72 hours. ANNA
[2018-10-03] MEDS: VANCOMYCIN 1,300 MG in NS 250 ML IV SCH (14:57)
[2018-10-04] MEDS: AZACTAM 1 GM in NS 50 ML IV SCH ×3 (00:24→17:21)
[2018-10-04] MEDS: DILAUDID IV PRN ×3 (01:30→11:24)
[2018-10-04] MEDS: FLAGYL 500 MG/NS 500 MG/100 ML IVPB IV SCH ×4 (01:30→20:20)
[2018-10-04] MEDS: TPN ELECTROLYTES 20 ML, MAGNESIUM SULFATE 4 MEQ, POTASSIUM CHLORIDE 10 MEQ, POTASSIUM P... IV SCH ×8 (04:12)
[2018-10-04] MEDS: LIPOSYN 20% 500 ML IV SCH (04:12)
[2018-10-04 06:30] LABS: BASO# 0.05 X1000 (0.0-0.2); BASO% 0.7 % (0.0-0.8); EOS% 1.4 % (0.0-10.0); HEMATOCRIT 27.8 % (37.0-47.0); HEMOGLOBIN 8.7 g/dL (12.0-16.0); IMM GRAN# 0.14 X1000 (0.0-0.04); IMM GRAN% 1.9 % (0.0-0.5); LYMPH# 1.76 X1000 (1.2-3.4); LYMPH% 23.9 % (20.5-51.1); MCHC 31.3 g/dL (33-37); MCV 83.2 FL (81-99); MONO# 0.48 X1000 (0.11-0.59); MONO% 6.5 % (1.7-9.3); MPV 10.9 FL (7.4-10.4); NEUT# 4.83 X1000 (1.4-6.5); NEUT% 65.6 % (42.2-75.2); PLT 225 X1000 (130-400); RBC 3.34 XMIL (4.2-5.4); RDW 17.7 % (11.5-14.5); WBC 7.36 X1000 (4.8-10.8)
[2018-10-04 06:33] LABS: ESTIMATED GFR > 60
[2018-10-04 06:52] LABS: AGAP 7; ALBUMIN 1.4 g/dL (3.5-5.0); BUN 18 mg/dL (8-22); CALCIUM 8.1 mg/dL (8.8-10.2); CHLORIDE 117 mmol/L (98-107); COSMO 292; CREATININE 0.5 mg/dL (0.5-0.9); GLUCOSE 164 mg/dL (70-104); MAGNESIUM 1.8 mg/dL (1.5-2.7); POTASSIUM 4.1 mmol/L (3.5-5.1); SODIUM 144 mmol/L (136-145); TCO2 20 mmol/L (25-35)
[2018-10-04] MEDS: KEPPRA 750 MG in NS 100 ML IV SCH ×2 (06:59→18:38)
[2018-10-04] MEDS: D5W 1,000 ML IV SCH ×2 (07:52→13:48)
--- NOTE | 2018-10-04 09:55 | PROGRESS NOTE ---
DATE: 10/04/2018 SUBJECTIVE: Ms. Fadumo Watt is a 78-year-old black female who has suffered a stroke. She needed brain surgery in [place]. A gastrostomy tube was placed but it became displaced, and she had tube feeding in her subcutaneous tissue in err. I initially saw her in the emergency department, removed her gastrostomy tube and through her gastrostomy tube opening, drained the fluid. Since that time, through our wound care nurse, we have placed a bag over this opening of the skin so that it could drain. It is unclear whether the stomach concealed and this is just fluid from the subcu or some of its gastric fluid too, suggesting a persistent gastrocutaneous fistula. She is being fed with TPN. She has received IV antibiotics and her white blood cell count now is normal. She has had a low-grade fever intermittently. She required blood transfusion. Her hematocrit is 28% and stable. Electrolytes are within normal limits. Dr. Galicia has seen her and feels that before any placement of another gastrostomy tube, the infection in her anterior abdominal wall has to be cleared. They decided against placing a feeding tube at this time and to continue TPN. I pushed on the wound epigastrium and some thick fluid was removed. I do feel there is some fluid pooling in the subcu. The output is not high. cc: Susan Mari MD
--- NOTE | 2018-10-04 14:44 | PROGRESS NOTE ---
DATE: 10/04/2018 INTERVAL HISTORY: The patient's drainage from her abdominal wound had almost stopped yesterday but this morning the wound was re-evaluated by surgery. They applied pressure and obtained a fairly large amount of fluid. She does seem slightly less edematous and slightly less tender in her lower abdomen today. Remains nonverbal with dense left hemiparesis. REVIEW OF SYSTEMS: Unable to obtain secondary to patient's mental status. LABS: WBC 7.3, hemoglobin 8.7, hematocrit 27.8, platelets 225,000. Sodium 144, potassium 4.1, chloride 119, bicarbonate 20, BUN 18, creatinine 0.5, glucose 207, lactate 1.7. VITALS: T-max 100 degrees, pulse 93, respirations 16, blood pressure 151/64, O2 saturation 100% on room air. PHYSICAL EXAM: Acute distress chronically ill-appearing.Vitals: As above. HEENT: Normocephalic, atraumatic. Moist mucous membranes. No cervical adenopathy. Cardiovascular: Regular rate and rhythm. No murmurs, rubs or gallops noted. Pulmonary: Clear to auscultation bilaterally. No wheezing, rales, or rhonchi. Abdomen: Soft and nondistended superiorly. Inferior abdomen continues to have intense pitting edema, although less edema today, especially along the left side and somewhat less tender than previous. Bowel sounds remain decreased but present. Tube site with ostomy bag with slightly increased drainage today. Extremities: Peripheral pulses intact. No clubbing, cyanosis. Trace lower extremity edema stable. Neurologic: Dense left hemiparesis unchanged limbs. The only limb she can really move consistently is the right upper. Everything else just twitches slightly on command. Continued occasional attempts to speak are largely unintelligible. No new focal deficits. Psychiatric: Patient remains nonverbal but has occasionally been able to speak her name. Continues to be quite cooperative with the right upper extremity, although she is weak even with that. Skin: No new rashes or lesions. ASSESSMENT AND PLAN: 1. Septic shock, lactic acidosis, abdominal wall infection. The patient required pressors initially but has been off for quite a while. The patient on antibiotics with vancomycin and aztreonam. Drainage from her percutaneous endoscopic gastrostomy tube sites had almost stopped but re-evaluated by surgery today who applied some pressure and drainage has increased again. Marked edema and tenderness of the lower abdomen slightly improved. Blood and urine cultures negative. Continue antibiotics for now. Once surgery is satisfied with the appearance of her abdomen and tube site, we will likely discharge to [facility] acute care. 2. Acute kidney injury, resolved. 3. Hyperkalemia, resolved. 4. Hyponatremia, poor response to half-normal saline, but has essentially resolved to D5W. We will continue that 1 more day and likely change fluids tomorrow. 5. Anemia. Patient's hemoglobin trended as low as 5.6. Received total of 3 units packed red blood cells. Hemoglobin and hematocrit largely stable since then. 6. Likely functional quadriplegia, recent subdural x2, cerebrovascular accident, left hemiparesis. Prior to admission, the patient was reportedly giving 1 to 2 word answers and occasional short sentences but has, since the above events at [facility] has required assistance with all activities of daily living. 7. Hyperlipidemia. Once patient has a tube that we can put pills through will restart statin. 8. Hypertension. Patient with essentially normal pressures for quite some time, but they do appear to be trying to trend up. We will restart her home Norvasc and monitor. 9. Possible metabolic encephalopathy. Patient with baseline, which is fairly poor, but reportedly somewhat more verbal at baseline that she has been here. She has had some improvement, but very slow and modest. Continue to monitor. 10. Nutrition patient remains on total parenteral nutrition. Gastroenterology wants the PEG site infection completely resolved prior to putting a new feeding tube, which may be quite a while. Discussed nasogastric tube but the family present at that time stated that she had always required restraining in the past to keep an NG tube in as she rips them out. Per that discussion with family, I have put her on total parenteral nutrition instead. The eventual for goal is for her to get another permanent feeding tube although if her ability to speak improves significantly, then a repeat swallow study might be indicated. 11. Disposition. Drainage from tube site again increased today. 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 Surgery following. Once they are satisfied with improvement, then will likely transition to care home acute care on total parenteral nutrition at likely IV antibiotics for a while yet. [facility]
[2018-10-04] MEDS: VANCOMYCIN 1,300 MG in NS 250 ML IV SCH (15:27)
--- NOTE | 2018-10-04 18:23 | GASTROENTEROLOGY PROGRESS NOTE ---
DATE: 10/04/2018 SUBJECTIVE: Patient did make eye contact, but was nonverbal at the time of my evaluation. She had several family members at the bedside. I have spoken with them about plan of care. Patient currently has TPN and lipids infusing. We had discussed the possibility of NG tube placement for tube feedings, but family reports that patient has pulled NG tubes out multiple times in the past. OBJECTIVE: Vital Signs: Temperature 99 degrees pulse 97, respirations 18, blood pressure 145/69. General: Patient was awake, eyes open. Nonverbal at present time. Abdomen: Abdominal site still has some distension, worse on the right side. Some tenderness with palpation. Ostomy bag intact with a thicker brownish drainage noted compared to yesterday. DIAGNOSTIC STUDIES: Hematology: WBC 7.36, hemoglobin 8.7, hematocrit 27.8, MCV 83.2, platelet 225,000. Chemistry: Sodium 144, potassium 4.1, chloride 117, CO2 of 22, BUN 18, creatinine 0.5, glucose 164. ASSESSMENT AND PLAN: 1. Sepsis with abdominal wall infection related to dislodgement of percutaneous endoscopic gastrostomy tube. Patient has colostomy bag with drainage noted. Continue on antibiotics. 2. Nutritional requirements. She is currently receiving TPN and lipids. Would not be able to replace her PEG tube until infection has resolved. Continue current means of nutrition at present time. 3. Recent brain surgery with evacuation of hematoma. 4. History of cerebrovascular accident. 5. Other medical problems, including hypertension and hyperlipidemia. We will continue to monitor during the hospital course. Once her infection has resolved, she can have her PEG tube replaced. I have discussed this case with Dr. Galicia. Dictated by HONEY Lopez for Shaji Galicia MD cc: HONEY Smith MD
[2018-10-05] MEDS: AZACTAM 1 GM in NS 50 ML IV SCH ×2 (00:55→09:14)
[2018-10-05] MEDS: FLAGYL 500 MG/NS 500 MG/100 ML IVPB IV SCH ×4 (01:36→20:16)
[2018-10-05] MEDS ORDERED: CALMOSEPTINE OINTMENT TOP PRN (01:59)
[2018-10-05] MEDS: LIPOSYN 20% 250 ML IV SCH (03:06)
[2018-10-05] MEDS: MAGNESIUM SULFATE IV SCH ×16 (03:06→04:50)
[2018-10-05] MEDS: TPN ELECTROLYTES IV SCH ×16 (03:06→04:50)
[2018-10-05] MEDS: POTASSIUM CHLORIDE IV SCH ×16 (03:06→04:50)
[2018-10-05] MEDS: [UNRECOGNIZED DRUG - OTHER] IV SCH ×16 (03:06→04:50)
[2018-10-05] MEDS: DILAUDID IV PRN (03:24)
[2018-10-05] MEDS: KEPPRA 750 MG in NS 100 ML IV SCH ×2 (05:11→18:31)
[2018-10-05] MEDS: LIPOSYN 20% 500 ML IV SCH (05:52)
[2018-10-05] MEDS: D5W 1,000 ML IV SCH ×2 (05:52→14:12)
[2018-10-05] MEDS: TPN ELECTROLYTES 20 ML, MAGNESIUM SULFATE 4 MEQ, POTASSIUM CHLORIDE 10 MEQ, POTASSIUM P... IV SCH ×8 (05:53)
[2018-10-05 07:11] LABS: ESTIMATED GFR > 60
[2018-10-05 07:14] LABS: AGAP 5; ALBUMIN 1.5 g/dL (3.5-5.0); BUN 17 mg/dL (8-22); CALCIUM 7.8 mg/dL (8.8-10.2); CHLORIDE 114 mmol/L (98-107); COSMO 281; CREATININE 0.7 mg/dL (0.5-0.9); GLUCOSE 108 mg/dL (70-104); MAGNESIUM 1.8 mg/dL (1.5-2.7); PHOSPHORUS 3.3 mg/dL (2.7-4.5); POTASSIUM 4.1 mmol/L (3.5-5.1); SODIUM 140 mmol/L (136-145); TCO2 21 mmol/L (25-35)
--- NOTE | 2018-10-05 13:38 | GASTROENTEROLOGY PROGRESS NOTE ---
DATE: 10/05/2018 SUBJECTIVE: Patient was resting. She had family at the bedside. She is receiving TPN and lipids. OBJECTIVE: Vital Signs: Temperature 98.1 degrees, pulse 93, respirations 14, blood pressure 148/66. Abdomen: With colostomy bag intact with brownish drainage noted in the bag. She continues to have some swelling on the right abdomen and firmness from cellulitis. LABORATORY: Hematology, WBC 7.36 hemoglobin 8.7, hematocrit 27.8, MCV 83.2, platelets 225,000. Chemistry. Sodium 140, potassium 4.1, chloride 114, CO2 21, BUN 17, creatinine 0.7, glucose 108, calcium 7.8. ASSESSMENT AND PLAN: 1. Sepsis with abdominal wall cellulitis related to dislodgement of gastrostomy tube. The patient has an ostomy bag over the site with brownish drainage. Continuing on antibiotics. 2. Nutritional requirements. Would not be able to replace her percutaneous endoscopic gastrostomy tube until infection has resolved. The patient is a poor candidate for nasogastric tube feeding due to that she has pulled feeding tubes out in the past. We will continue IV TPN and lipids. Will continue to follow and further plans will be made as needed. I have discussed this case with Dr. Galicia. Dictated by HONEY Lopez for Shaji Galicia MD cc: HONEY Smith MD [facility]
[2018-10-05] MEDS: VANCOMYCIN 1,300 MG in NS 250 ML IV SCH (16:26)
--- NOTE | 2018-10-05 20:01 | PROGRESS NOTE ---
DATE: 10/05/2018 INTERVAL HISTORY: Ms. Watt did have an episode of fever with a temperature of 100.4 degrees. Her pulse has been in the 90s. According to family, she has been slightly less responsive today than she was yesterday. She does not appear in any acute distress, though. SUBJECTIVE: She is nonverbal. OBJECTIVE: Vital Signs: Currently, temperature 98.4 degrees, pulse 98, respiratory 16, blood pressure 140/62. She is saturating 100% on room air. General: Not in any acute distress. Oral cavity has volar secretion and dry. Lungs: Air entry bilaterally equal. No wheeze, rhonchi, crackles. Cardiovascular: S1, S2 normal. Tachycardic. No murmur or gallop. Abdomen: She does have a bag over her PEG tube site wound which is draining muddy looking secretions. On pressing the epigastric region, I could squeeze out some more secretion. I could not appreciate bowel sounds. She is excruciatingly tender. Extremities: Mild bilateral lower extremity edema. Genitourinary: She has urine catheter. LABORATORY DATA: No CBC today. BMP suggestive of hyperchloremia and hypoalbuminemia. ASSESSMENT AND PLAN: 1. Enterococcus faecalis abdominal wall cellulitis associated with dislodged percutaneous endoscopic gastrostomy tube status post removal of percutaneous endoscopic gastrostomy tube and application of a bag. Continue intravenous antibiotics. My plan is to tailor antibiotics now that she is out of shock. Surgery on board continues to recommend antibiotic management with antibiotic management. I will continue intravenous vancomycin and intravenous metronidazole and stop intravenous aztreonam. Further placement of tube deferred by Gastroenterology team until the wound infection is cleared. 2. Nutrition. Continue total parenteral nutrition and D5 water for her hyperchloremia. 3. Microcytic anemia appears to be stable status post 3 units of blood transfusion. Continue to monitor. 4. Septic shock, lactic acidosis, acute kidney injury, hyperkalemia have resolved. Her essential hypertension and hyperlipidemia is stable. 5. 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 Aware. I will continue acetaminophen as needed. 6. Disposition. I was informed that the patient's insurance had declined LTAC placement, and I would attempt to all insurance tomorrow once I have discussion with the surgical team about her long-term wound plan. Plan of care discussed with the patient's son at bedside. All of their questions have been answered. cc: Kb Palmer MD MTDD
[2018-10-06] MEDS: FLAGYL 500 MG/NS 500 MG/100 ML IVPB IV SCH ×4 (02:15→20:23)
[2018-10-06] MEDS: POTASSIUM CHLORIDE IV SCH ×9 (03:51)
[2018-10-06] MEDS: MAGNESIUM SULFATE IV SCH ×9 (03:51)
[2018-10-06] MEDS: TPN ELECTROLYTES IV SCH ×9 (03:51)
[2018-10-06] MEDS: [UNRECOGNIZED DRUG - OTHER] IV SCH ×9 (03:51)
[2018-10-06] MEDS: LIPOSYN 20% 250 ML IV SCH (03:52)
[2018-10-06] MEDS: KEPPRA 750 MG in NS 100 ML IV SCH ×2 (05:12→18:37)
[2018-10-06] MEDS: TYLENOL PR PRN (06:06)
[2018-10-06 06:49] LABS: AGAP 8; ALBUMIN 1.5 g/dL (3.5-5.0); BUN 16 mg/dL (8-22); CALCIUM 7.5 mg/dL (8.8-10.2); CHLORIDE 109 mmol/L (98-107); COSMO 279; CREATININE 0.5 mg/dL (0.5-0.9); ESTIMATED GFR > 60; GLUCOSE 198 mg/dL (70-104); MAGNESIUM 1.7 mg/dL (1.5-2.7); POTASSIUM 3.8 mmol/L (3.5-5.1); SODIUM 136 mmol/L (136-145); TCO2 19 mmol/L (25-35)
[2018-10-06] MEDS: DILAUDID IV PRN (11:28)
--- NOTE | 2018-10-06 13:38 | Diag Imaging Result Doc PS360 ---
CHEST-2 VIEWS - 10/06/2018 INDICATION: hypoxia COMPARISON: 09/28/2018 FINDINGS: There is a right PICC line in good position with the catheter tip in the upper SVC. Lung volumes are low. No infiltrates or edema. Heart size is top normal. IMPRESSION: New right PICC line in good position. Electronically signed by Deangelo Boswell 10/06/2018 1:35 PM
--- NOTE | 2018-10-06 13:45 | Diag Imaging Result Doc PS360 ---
EXAM: CT ABD/PELVIS W/IV CONT ONLY 10/06/2018 HISTORY: Evaluate for Abdominal wall cellulitis/abscess TECHNIQUE: This exam was performed using automated exposure control, adjustment of mA or kV according to patient size, and/or use of iterative reconstruction technique. COMMENT: There are bilateral pleural effusions. There is minimal atelectasis in the posterior costophrenic sulci both lower lobes. The volume of pleural fluid and degree of atelectasis are slightly worse than on 10/01/2018. The aorta is not distended. The mesenteric and renal arteries are patent. The liver, spleen, adrenal glands, and pancreas are stable in appearance compared to the previous study. The gallbladder is slightly distended as it was previously. The gastric body is still adherent to the anterior abdominal wall presumably in the area in which the gastrostomy tube previously passed. This has not changed in appearance since the previous study. There is an increasing amount of gas and fluid in the subcutaneous tissues anteriorly in comparison with the previous examination. This is very likely an abscess. It extends laterally on both sides almost to the flanks. It is at least 7.5 cm in superior-inferior dimension. There is very little free fluid in the abdomen and pelvis. There is no evidence of free air. The small bowel is not distended. The stomach is not distended. There is some fluid in the colon. There is no evidence of appendicitis. There is some fluid in the ascending colon. The kidneys are without evidence of hydronephrosis. There are cysts present in the right kidney. Pelvis: In comparison with the previous study the [place] catheter has been removed otherwise are has been no significant change. The regional skeleton is stable in appearance. IMPRESSION: Minimally worsened bilateral pleural fluid collections and atelectasis. Subcutaneous abscess which is more consolidated into a single fluid collection anteriorly. This is likely an abscess. Electronically signed by Demetrio Marie 10/06/2018 1:43 PM
[2018-10-06] MEDS: D5W 1,000 ML IV SCH (13:55)
--- NOTE | 2018-10-06 13:59 | PROGRESS NOTE ---
DATE: 10/06/2018 INTERVAL HISTORY: She continues to spike fever for which blood culture, urinalysis, chest x-ray has been ordered. A CT scan of the abdomen and pelvis has also been ordered to see if she is developing any abscess. Her [place] catheter was discontinued overnight. The patient is at baseline currently not nonverbal currently. VITAL SIGNS: Suggest temperature T-max of 100.6 degrees. She is mildly tachycardic with pulse of 92, respiratory rate 16, blood pressure 140/72. She is saturating 95% on room air. PHYSICAL EXAMINATION: She does have a pool of oral secretions and poor p.o. and dried flecks inside her mouth of sputum.Lungs: Air entry bilaterally equal in supramammary region. No wheeze, rhonchi, or crackles. She is not able to follow commands off deep breathe to assess infrascapular region appropriately. Cardiovascular: S1, S2 normal. Regular. No murmur, rub, or gallop. Abdomen: She has a bag over PEG tube site which is draining muddy secretions, thin liquid consistency. She does have bilateral flank tenderness and some crackles and rigidity on examination. Extremities: Mild bilateral lower extremity edema. She is alert but not oriented. She moves her right upper and lower extremity to painful stimuli, but not the left. Data: Input and output suggests she did have a liquid bowel movement. LABS: No CBC today. ASSESSMENT AND PLAN: 1. Enterococcus faecalis abdominal wall infection associated with dislodged percutaneous endoscopic gastrostomy tube, status post removal on 09/25/2018 and application of a bag for drainage. Continue intravenous vancomycin and intravenous metronidazole. Follow up CT scan of the abdomen and pelvis to rule out any development of abscess. 2. Persistent fever and tachycardia with development of likely new sepsis. Follow up chest x- ray, urinalysis, blood culture and CT scan of the abdomen and pelvis for abscess identification. Continue currently intravenous vancomycin, intravenous metronidazole and add gram-negative coverage as tolerated. 3. Nutrition: Continue total parenteral nutrition and D5 water for her hyperchloremia. Decide about enteral nutrition based on repeat CT scan. 4. Microcytic anemia likely due to hemodilution requiring 2 units of packed red blood cells since admission, septic shock, lactic acidosis, acute kidney injury, hyperkalemia have resolved and her hypertension and hyperlipidemia is stable. 5. Recent history of right-sided subdural hematoma with right-sided parietal cerebrovascular accident in August 2018 status post left hemiparesis and functional quadriplegia, aware. Her kayla have been removed today. DISPOSITION: Patient's condition and prognosis are grim considering multiple comorbidities. I had an extensive discussion with the patient's daughter on phone and daughter in-law in person about code status. She is going to discuss about that with her other family members to make a final decision about code status. Plan of care discussed with daughter. All of her questions have been answered. She remains on TPN and eventually may need to go to an LTAC facility for need for continuous TPN. cc: Kb Palmer MD MTDD
[2018-10-06] MEDS: VANCOMYCIN 1,300 MG in NS 250 ML IV SCH (15:00)
--- NOTE | 2018-10-06 15:18 | GASTROENTEROLOGY PROGRESS NOTE ---
DATE: 10/06/2018 SUBJECTIVE: The patient has eyes open. Family is at the bedside. At the time of my evaluation, she was having blood cultures drawn. The patient has had a fever over the last 24 hours. Temperature max documented was 101.3. She has had a CT scan done today that showed subcutaneous abscess more consolidated into a single fluid collection anteriorly, minimal worsened bilateral pleural fluid collections, and atelectasis. She continues to have an ostomy bag over her previous feeding tube site. OBJECTIVE: Vital Signs: Temperature 101.3 degrees, pulse 98, respirations 16, blood pressure 144/72. General: The patient is with eyes open today. A little more awake. She has had a fever. Blood cultures have been drawn. CT scan has been done. Laboratory: Hematology: WBCs 7.36, hemoglobin 8.7, hematocrit 27.8, MCV 83.2, platelets 225,000. Chemistry: Sodium 136, potassium 3.8, chloride 109. CO2 of 19, BUN 16, creatinine 0.5, glucose 198, calcium 7.5. ASSESSMENT AND PLAN: 1. Sepsis with abdominal wall cellulitis and now possible abscess. 2. Fever. Patient has had blood cultures drawn. 3. CT scan showing abscess. Patient may require drainage. [facility] are following. 4. Nutritional requirements. Patient is currently receiving total parenteral nutrition and lipids. We cannot replace her percutaneous endoscopic gastrostomy tube until infection resolves. 5. I have discussed this case with Dr. Galicia. Dictated by HONEY Lopez for Shaji Galicia MD cc: HONEY Smith MD
--- NOTE | 2018-10-06 17:42 | PROGRESS NOTE ---
DATE: 10/06/2018 SUBJECTIVE: Ms Fadumo Watt has had some fever lately and so we got a CT scan of her abdomen to again look at her anterior abdominal wall and there does appear to be a soft tissue abscess involving her anterior abdominal wall and extended into both flanks and despite her gastrostomy tube opening this purulence he is not being drained adequately and to get serious about drainage she will have to go to the operating room for surgical drainage and irrigation. She may require general anesthesia and I worry about being on the ventilator postoperatively. She remains on TPN. She is still receiving IV antibiotics. Her white count is within normal range despite these this abscess. Her family is not at the bedside this evening but we will plan to proceed with surgery with their blessing tomorrow. cc: Susan Mari MD
[2018-10-06 18:34] LABS: URINE SOURCE CATH
[2018-10-06 18:36] LABS: BILIRUBIN URINE NEGATIVE (NEGATIVE); BLOOD URINE NEGATIVE (NEGATIVE); COLOR YELLOW; GLUCOSE URINE NEGATIVE (NEGATIVE); KETONE URINE NEGATIVE (NEGATIVE); LEUKOCYTES URINE NEGATIVE (NEGATIVE); NITRITE URINE NEGATIVE (NEGATIVE); PROTEIN URINE NEGATIVE (NEGATIVE); SP GRAVITY URINE 1.027; TURBIDITY URINE HAZY (CLEAR); UROBILINOGEN URINE NORMAL (NORMAL)
[2018-10-06 18:43] LABS: UR EPITHELIAL CELLS <10 /HPF (<10); URINE BACTERIA NEGATIVE /HPF; URINE WBC <10 /HPF (<10)
[2018-10-06 18:46] LABS: URINE RBC <10 /HPF (<10); URINE YEAST PRESENT
[2018-10-07] MEDS: TPN ELECTROLYTES IV SCH ×9 (03:18)
[2018-10-07] MEDS: LIPOSYN 20% 250 ML IV SCH (03:18)
[2018-10-07] MEDS: POTASSIUM CHLORIDE IV SCH ×9 (03:18)
[2018-10-07] MEDS: [UNRECOGNIZED DRUG - OTHER] IV SCH ×9 (03:18)
[2018-10-07] MEDS: MAGNESIUM SULFATE IV SCH ×9 (03:18)
[2018-10-07] MEDS: FLAGYL 500 MG/NS 500 MG/100 ML IVPB IV SCH ×4 (03:21→21:04)
[2018-10-07] MEDS: TYLENOL PR PRN ×2 (04:45→23:42)
[2018-10-07] MEDS: KEPPRA 750 MG in NS 100 ML IV SCH ×2 (06:13→17:24)
[2018-10-07 06:52] LABS: ESTIMATED GFR > 60
[2018-10-07 06:55] LABS: BASO# 0.04 X1000 (0.0-0.2); BASO% 0.6 % (0.0-0.8); EOS# 0.05 X1000 (0.0-0.7); EOS% 0.7 % (0.0-10.0); HEMATOCRIT 25.5 % (37.0-47.0); HEMOGLOBIN 8.1 g/dL (12.0-16.0); IMM GRAN# 0.14 X1000 (0.0-0.04); LYMPH# 1.53 X1000 (1.2-3.4); LYMPH% 21.8 % (20.5-51.1); MCHC 31.8 g/dL (33-37); MONO# 0.98 X1000 (0.11-0.59); MONO% 13.9 % (1.7-9.3); MPV 11.8 FL (7.4-10.4); NEUT# 4.29 X1000 (1.4-6.5); PLT 281 X1000 (130-400); RBC 3.11 XMIL (4.2-5.4); RDW 17.6 % (11.5-14.5); WBC 7.03 X1000 (4.8-10.8)
[2018-10-07 06:58] LABS: BANDS 8 % (0-1); LYMPHS 14 % (21-51); MONO 12 % (1-9); SEGS 64 % (42-75)
[2018-10-07 06:59] LABS: AGAP 8; ALBUMIN 1.6 g/dL (3.5-5.0); BUN 16 mg/dL (8-22); CALCIUM 7.6 mg/dL (8.8-10.2); CHLORIDE 109 mmol/L (98-107); CHOLESTEROL 56 mg/dL (0-200); COSMO 279; CREATININE 0.5 mg/dL (0.5-0.9); GLUCOSE 202 mg/dL (70-104); GOT 14 U/L (10-30); MAGNESIUM 1.7 mg/dL (1.5-2.7); PHOSPHORUS 2.9 mg/dL (2.7-4.5); POTASSIUM 3.6 mmol/L (3.5-5.1); SODIUM 136 mmol/L (136-145); TCO2 19 mmol/L (25-35); TRIGLYCERIDES 71 mg/dL (35-135)
[2018-10-07] MEDS: D5W 1,000 ML IV SCH ×2 (07:51→15:16)
--- NOTE | 2018-10-07 12:18 | PROGRESS NOTE ---
DATE: 10/07/2018 INTERVAL HISTORY: No acute events overnight. CT scan of the abdomen and pelvis had detected abdominal wall abscess. Her chest x-ray was essentially unremarkable except low lung volumes. Urinalysis was also unremarkable. General Surgery team is planning surgery for abscess evacuation. SUBJECTIVE: VITAL SIGNS: Patient is nonverbal. She has had a temperature of 101 degrees, pulse is currently 100, respiratory rate 20, blood pressure 112/41. She is saturating 97% on room air. PHYSICAL EXAMINATION: HEENT: She has a right-sided gaze preference, not in any distress. Lungs: Air entry bilaterally equal. No wheeze, rhonchi, crackles. Cardiovascular: S1, S2 normal. Regular. No murmur, rub, or gallop. Abdomen: Has a bag over PEG tube site draining muddy thin liquid secretions, thin liquid consistency. Bilateral flank tenderness and rigidity. Extremity: Mild bilateral lower extremity edema. Neurologic: She is alert, not oriented, does not follow commands. She is moving her right upper and lower extremities spontaneously. LABORATORY DATA: Hemoglobin 8.1, platelet 281,000, chloride 109, normal kidney function, hypoalbuminemia, microbiology, blood cultures are in lab. ASSESSMENT AND PLAN: 1. Enterococcus faecalis abdominal wall abscess associated with a dislodged PEG tube, status post removal on September 25 and application of bag for drainage. Continue intravenous vancomycin and intravenous metronidazole. I will add back other antibiotics after the abscess drainage according to culture. Surgical team in the process of discussion with the patient's daughter about surgical management. 2. Nutrition. Continue total parenteral nutrition and D5 water for hyperchloremia. 3. Microcytic anemia due to hemodilution requiring 2 units of packed red blood cells. He is currently stable; her septic shock, lactic acidosis, acute kidney injury on presentation have resolved. 4. Right subdural hematoma twice requiring craniotomy and right parietal cerebrovascular accident in August 2018 status post left hemiparesis and functional quadriplegia. Aware. [place] have been removed. 5. Disposition. The patient's condition and prognosis are poor. I had discussion with the patient's daughter yesterday. I will again try and get in touch with them today to update them about clinical course, possible surgery versus hospice care. cc: Kb Palmer MD [facility]
--- NOTE | 2018-10-07 15:10 | PROGRESS NOTE ---
DATE: 10/07/2018 Ms. Fadumo Watt has undrained purulence involving her anterior abdominal wall and I had her posted for surgery today. We do feel that she will be on the ventilator after surgery and then have large wounds that she would have to heal by secondary intention. We also have problems with nutrition. She is on TPN and we are having problems trying to feed her more naturally. She has suffered a stroke and is kind of bedbound and she is having trouble swallowing, so we cannot feed her by mouth. She still has some drainage from her gastrostomy site, which has not totally sealed. After discussing with the family drainage of her anterior abdominal wall abscess, they want to get together and decide the direction of her care from here so we have postponed her surgery, I can certainly do it tomorrow. I will check with the family tomorrow. cc: Susan Mari MD
[2018-10-07] MEDS: VANCOMYCIN 1,300 MG in NS 250 ML IV SCH (15:27)
[2018-10-08] MEDS ORDERED: TPN ELECTROLYTES IV SCH ×9 (03:00)
[2018-10-08] MEDS ORDERED: MAGNESIUM SULFATE IV SCH ×9 (03:00)
[2018-10-08] MEDS ORDERED: POTASSIUM ACETATE IV SCH ×9 (03:00)
[2018-10-08] MEDS ORDERED: [UNRECOGNIZED DRUG - OTHER] IV SCH ×9 (03:00)
[2018-10-08] MEDS: LIPOSYN 20% 250 ML IV SCH (03:33)
[2018-10-08] MEDS: FLAGYL 500 MG/NS 500 MG/100 ML IVPB IV SCH ×2 (03:33→08:27)
[2018-10-08] MEDS: KEPPRA 750 MG in NS 100 ML IV SCH ×2 (06:55→18:22)
[2018-10-08 07:35] LABS: ALBUMIN 1.7 g/dL (3.5-5.0); MAGNESIUM 1.8 mg/dL (1.5-2.7); PHOSPHORUS 3.2 mg/dL (2.7-4.5)
[2018-10-08 07:44] LABS: AGAP 9; BUN 18 mg/dL (8-22); CALCIUM 7.7 mg/dL (8.8-10.2); CHLORIDE 111 mmol/L (98-107); COSMO 283; CREATININE 0.6 mg/dL (0.5-0.9); ESTIMATED GFR > 60; GLUCOSE 205 mg/dL (70-104); POTASSIUM 3.7 mmol/L (3.5-5.1); SODIUM 138 mmol/L (136-145); TCO2 18 mmol/L (25-35)
[2018-10-08] MEDS: TYLENOL PR PRN (08:27)
--- NOTE | 2018-10-08 12:41 | GASTROENTEROLOGY PROGRESS NOTE ---
DATE: 10/08/2018 SUBJECTIVE: The patient has eyes open today. No acute distress noted. I have spoken with her daughter who was at the bedside. The patient has been followed by [facility]. There was recommendation of possible drainage of her abscess. A CT scan had detected abdominal wall abscess. She has been followed by Dr. Mari. He spoke with the family yesterday, and they wanted to talk about plans. Patient's daughter states they have discussed with the family and currently do not want to proceed with invasive procedures. OBJECTIVE: Vital Signs: Temperature 100.8 degrees, pulse 103, respirations 20, blood pressure 105/59. General: Patient was with the eyes open this morning. Squeezed right hand slightly on command. Nonverbal. Abdomen: Still with some distension. Brownish contents from colostomy bag. DIAGNOSTIC STUDIES: Hematology: WBC 7.03, hemoglobin 8.1, hematocrit 25.5, MCV 82.0, platelets 281,000. Chemistry: Sodium 138, potassium 3.7, chloride 111, CO2 of 18, BUN 18, creatinine 0.6, glucose 205, albumin 1.7. ASSESSMENT AND PLAN: 1. Abdominal wall cellulitis and abscess related to dislodgement of percutaneous endoscopic gastrostomy tube. Patient continues on antibiotics. There was discussion about surgical drainage of the abscess, but I believe the family has decided against that. 2. Nutritional requirements. We are unable to replace the PEG tube due to infection and abscess. Family did not want NG-tube feeding because patient has pulled tubes out in the past. She is currently receiving IV nutrition. 3. Recent right subdural hematoma requiring craniotomy and cerebrovascular accident. We will continue supportive care. Family has decided to postpone invasive procedures or surgery at this time. Gastroenterology will currently sign off for now, but please reconsult us if needed. I have discussed this case with Dr. Galicia. Dictated by HONEY Lopez for Shaji Galicia MD cc: HONEY Smith MD
--- NOTE | 2018-10-08 13:01 | PROGRESS NOTE ---
DATE: 10/08/2018 For the last 2 days, I have spoken to several family members of Ms. Watt in detail about her condition, about possible surgery, and postoperative care. They do not want to proceed with incision and drainage of infection involving her anterior abdominal wall. We do feel that she would have to be under general anesthesia for this operation and she would be hospitalized in the ICU on the ventilator. We would still have issues trying to give her nutrition TPN versus NG tube feeding. Clinically, she has worsened over the last 48 to 72 hours. The family has decided on comfort care and not to proceed with any incision and drainage of her anterior abdominal wall abscess. I do not disagree with this decision as the patient is a custodial resident and is having difficulty moving one side because of a recent stroke and brain surgery x2. I will talk with Dr. Palmer about my conversation with the family. I think we need to consider stopping IV antibiotics and even TPN, possibly consult hospice so that they can see her as an inpatient. cc: Susan Mari MD
[2018-10-08] MEDS ORDERED: ATIVAN IV PRN (13:44)
--- NOTE | 2018-10-08 16:45 | PROGRESS NOTE ---
DATE: 10/08/2018 INTERVAL HISTORY: She continued to spike fever. Surgical team had extensive discussion about patient's clinical condition with the patient's daughter, and they have decided not to pursue aggressive measures. At the time of my evaluation, patient's daughter is at bedside. The patient appears in mild distress, however, is nonverbal. OBJECTIVE: Vitals: Currently temperature 99 degrees, pulse 101, respiratory rate 16, blood pressure 130/60, saturating 99% on room air. General: She is in mild distress. She has a right- sided gaze preference. HEENT: Oral cavity has some secretions. Lungs: Her air entry is bilaterally equal. No wheeze, rhonchi, crackles. Cardiovascular: S1, S2 normal. No murmur, rub, or gallop. Abdomen: Has a bag over PEG tube site, draining muddy thin liquid secretions, bilateral flank tenderness, crepitations, and rigidity. She winces to pain on palpation. Extremities: Mild bilateral lower extremity edema. Neurological: She is alert, not oriented, does not follow commands. She moves her right upper and lower extremities rather slowly today. No movement on left upper and lower extremities on painful stimuli. DIAGNOSTIC STUDIES: Labs suggestive of hyperchloremia, low bicarbonate, normal glucose. ASSESSMENT: 1. Enterococcus faecalis abdominal wall abscess associated with dislodged percutaneous endoscopic gastrostomy tube, status post removal of percutaneous endoscopic gastrostomy tube on September 25 and application of bag for drainage. 2. Recent right subdural hematoma requiring craniotomy and right parietal cerebrovascular accident in August 2018, status post left hemiparesis and functional quadriplegia. 3. Recurrence of sepsis in the setting of developing intraabdominal wall abscess. 4. Present septic shock and acute kidney injury on presentation. PLAN: I had an extensive discussion about patient's clinical condition with the patient's daughter. I explained to her that, if we pursue aggressive measures, it may include putting her under general anesthesia for laparotomy, abdominal wall washout, requiring intubation and ventilator support, and likely continued ventilator support post surgery, and considering her functional status, she would be at risk of postsurgical complication, including wound healing, poor nutrition, pneumonia. Considering the risks associated with that, we also discussed about the 2nd option which is to do not resuscitate or intubate her and provide her comfort measures only. After understanding, the patient's daughter decided to make her comfort measures only. I will start her on intravenous morphine, intravenous lorazepam as needed for her pain and anxiety. We will continue her on acetaminophen rectally for fever and antiseizure medications and consult Hospice. cc: Kb Palmer MD MTDD
[2018-10-08] MEDS ORDERED: VANCOMYCIN IV PER PHARMACY MISC SCH (18:45)
[2018-10-08] MEDS: MORPHINE IV PRN (18:57)
[2018-10-08 20:04] LABS: AGAP 7; BUN 18 mg/dL (8-22); CALCIUM 7.5 mg/dL (8.8-10.2); CHLORIDE 111 mmol/L (98-107); CHOLESTEROL 45 mg/dL (0-200); COSMO 276; CREATININE 0.5 mg/dL (0.5-0.9); ESTIMATED GFR > 60; GLUCOSE 95 mg/dL (70-104); GOT 17 U/L (10-30); MAGNESIUM 1.8 mg/dL (1.5-2.7); PHOSPHORUS 3.3 mg/dL (2.7-4.5); POTASSIUM 3.7 mmol/L (3.5-5.1); PREALBUMIN 13.2 mg/dL (20-40); SODIUM 137 mmol/L (136-145); TCO2 19 mmol/L (25-35); TRIGLYCERIDES 60 mg/dL (35-135)
[2018-10-08] MEDS: SODIUM BICARBONATE 8.4% 150 MEQ in D5W 1,000 ML IV SCH (21:36)
[2018-10-08] MEDS: VANCOMYCIN 1.3 GM in NS 250 ML IV SCH (21:37)
[2018-10-09] MEDS: TYLENOL PR PRN (01:13)
[2018-10-09] MEDS: KEPPRA 750 MG in NS 100 ML IV SCH ×2 (05:50→18:27)
[2018-10-09 06:11] LABS: BASO# 0.04 X1000 (0.0-0.2); BASO% 0.4 % (0.0-0.8); EOS# 0.05 X1000 (0.0-0.7); EOS% 0.5 % (0.0-10.0); HEMATOCRIT 25.3 % (37.0-47.0); HEMOGLOBIN 7.8 g/dL (12.0-16.0); IMM GRAN# 0.17 X1000 (0.0-0.04); IMM GRAN% 1.7 % (0.0-0.5); LYMPH# 1.66 X1000 (1.2-3.4); LYMPH% 16.6 % (20.5-51.1); MCH 25.2 PG (27-31); MCHC 30.8 g/dL (33-37); MCV 81.9 FL (81-99); MPV 11.2 FL (7.4-10.4); NEUT# 6.29 X1000 (1.4-6.5); NEUT% 62.8 % (42.2-75.2); PLT 345 X1000 (130-400); RBC 3.09 XMIL (4.2-5.4); RDW 17.9 % (11.5-14.5); WBC 10.01 X1000 (4.8-10.8)
[2018-10-09 06:24] LABS: AGAP 6; BUN 17 mg/dL (8-22); CALCIUM 7.5 mg/dL (8.8-10.2); CHLORIDE 112 mmol/L (98-107); COSMO 281; CREATININE 0.5 mg/dL (0.5-0.9); ESTIMATED GFR > 60; GLUCOSE 91 mg/dL (70-104); MAGNESIUM 1.8 mg/dL (1.5-2.7); PHOSPHORUS 3.5 mg/dL (2.7-4.5); POTASSIUM 3.9 mmol/L (3.5-5.1); SODIUM 140 mmol/L (136-145); TCO2 22 mmol/L (25-35)
[2018-10-09 07:13] LABS: BANDS 11 % (0-1); LYMPHS 12 % (21-51); MONO 13 % (1-9); POLYCHROM 1+; SEGS 64 % (42-75)
[2018-10-09 07:14] LABS: ANISOCYTOSIS 2+
[2018-10-09] MEDS ORDERED: MISC. PHARMACY COMMUNICATION SCH (08:45)
[2018-10-09] MEDS: MAGNESIUM SULFATE IV SCH ×9 (12:02)
[2018-10-09] MEDS: LIPOSYN 20% 250 ML IV SCH (12:02)
[2018-10-09] MEDS: POTASSIUM CHLORIDE IV SCH ×9 (12:02)
[2018-10-09] MEDS: TPN ELECTROLYTES IV SCH ×9 (12:02)
[2018-10-09] MEDS: [UNRECOGNIZED DRUG - OTHER] IV SCH ×9 (12:02)
[2018-10-09] MEDS ORDERED: CATHFLO IV ONE (12:53)
[2018-10-09] MEDS ORDERED: STERILE WATER INJ. INJ ONE (12:53)
--- NOTE | 2018-10-09 15:07 | PROGRESS NOTE ---
DATE: 10/09/2018 INTERVAL HISTORY: No acute events overnight. The patient has started intravenous vancomycin. The patient's son is at bedside. I discussed plan of care with him. The patient does not appear in acute distress. Vital signs: Temperature 98.3, pulse 72, blood pressure 140/60, saturating 94% room air. PHYSICAL EXAMINATION: General: Not in acute distress. She keeps her mouth closed. Resists eye opening but pupils equal and reacting to light. She has a right-sided gaze preference. Lungs: Air entry bilateral equal. No wheeze, rhonchi, or crackles. Cardiovascular: S1, S2 normal. No murmur, rub, or gallop. Abdomen: Has a bag over PEG tube site wound draining pus-filled muddy discharge. Center of the abdomen is soft. There is firmness on bilateral flank. Neurologic: She is alert. She is nonverbal. She is moving her right and upper lower extremities to painful stimuli. No movement on left lower extremity or upper extremity. LABORATORY: Labs suggestive of no leukocytosis, normocytic anemia, normal platelet count. Hyperchloremia, low bicarbonate. Normal kidney function. Blood culture did not have any growth to date. No new imaging. ASSESSMENT AND PLAN: 1. Enterococcus faecalis abdominal wall abscess associated with dislodged percutaneous endoscopic gastrostomy tube, status post removal on 09/25 and application of bag for drainage. Continue intravenous vancomycin. Surgical team on board for drainage of the abscess. Appreciate recommendation. Will continue her on total parenteral nutrition. Considering her recent stroke and subdural hematoma, she is going to be high risk for perioperative adverse outcome. 2. Recent right subdural hematoma requiring craniotomy and right parietal ischemic cerebrovascular accident in August 2018 status post left hemiparesis and functional quadriplegia. 3. Recurrent sepsis in the setting of developing intraabdominal wall abscess. Continue antibiotics and surgical management and recommendations pending. 4. Septic shock and acute kidney injury on presentation has resolved. I will continue mechanical devices for DVT prophylaxis and Nexium for stress ulcer prophylaxis. She also has a right- sided PICC line for which Cathflo has been ordered. 5. Disposition. Continue to monitor patient on floor. Plan of care discussed with her son at bedside, all his questions have been answered. cc: MD ANNA Steinberg
--- NOTE | 2018-10-09 15:46 | GENERAL SURGERY PROGRESS NOTE ---
DATE: 10/09/2018 SUBJECTIVE: I was made aware by the staff this morning that the family had decided against hospice care at this time and wanted everything that could be done for her including surgery. OBJECTIVE: Vital Signs: She is afebrile. Vital signs are stable. General: She is somnolent but arousable. She opens her eyes to voice and physical stimulation. She remains nonverbal and cannot follow commands. GI: Soft, appears to be somewhat tender. She has fluctuant areas across her mid upper abdomen. There is an ostomy appliance over her gastrotomy site draining brown fluid. LABORATORY: White cell count 8, hemoglobin 7.8, platelet count 345,000. Electrolytes reviewed and unremarkable. ASSESSMENT AND PLAN: A 78-year-old female with abdominal wall abscess secondary to misplaced gastrostomy tube. This is in the setting of recent stroke with significant left-sided defect, also recent right subdural hematoma requiring craniotomy. We are planning incision and drainage of this abscess tomorrow. I have discussed with her son Avril and he understands the risks and benefits including bleeding, ongoing infection, poor wound healing, respiratory difficulties postoperatively, and other imponderables. He understands and agrees to proceed. cc: Americo Burch MD
[2018-10-09] MEDS: SODIUM BICARBONATE 8.4% 150 MEQ in D5W 1,000 ML IV SCH (16:42)
[2018-10-09] MEDS: MORPHINE IV PRN (16:42)
[2018-10-09] MEDS: SODIUM CHLORIDE 0.9% INJ SCH (16:42)
[2018-10-09] MEDS: PROTONIX IV SCH (16:42)
[2018-10-09] MEDS: VANCOMYCIN 1.3 GM in NS 250 ML IV SCH (21:36)
[2018-10-10] MEDS: KEPPRA 750 MG in NS 100 ML IV SCH ×2 (05:07→18:36)
[2018-10-10] MEDS: MORPHINE IV PRN ×4 (05:52→18:36)
[2018-10-10] MEDS ORDERED: FENTANYL ONE (06:24)
[2018-10-10] MEDS ORDERED: VERSED ONE (06:24)
[2018-10-10] MEDS ORDERED: DIPRIVAN 1% ONE (06:25)
[2018-10-10] MEDS ORDERED: KETAMINE ONE (07:55)
[2018-10-10] MEDS: MORPHINE ONE ×2 (09:13→09:35)
--- NOTE | 2018-10-10 09:17 | OPERATIVE NOTE ---
PROCEDURE DATE: 10/10/2018 PREOPERATIVE DIAGNOSES: 1. Abdominal wall abscess. 2. Status post stroke. POSTOPERATIVE DIAGNOSES: 1. Abdominal wall abscess. 2. Status post stroke. PROCEDURE PERFORMED: Incision and drainage of abdominal wall abscess. SURGEON: Americo Burch M.D. TRAFFIC RATE ANALYST: ADRIEL Zamora. ANESTHESIA: General. ESTIMATED BLOOD LOSS: 50 mL. COMPLICATIONS: None apparent. SPECIMENS: None. FINDINGS: Large abscess of the abdominal wall, with copious amounts of pus and necrotic subcu fat. This extended from her right lateral abdomen and flank, across the midline, to the left lateral abdomen and flank. DESCRIPTION OF PROCEDURE: The patient was brought to the operating room and placed supine on the table. General LMA anesthesia was induced. She was prepped and draped in the usual sterile fashion. We made an elliptical incision around the old gastrostomy wound, and carried this down into the subcutaneous fat sharply. I explored this wound, and could not find any abscess directly in this wound. I then made a counter incision over the fluctuant area of the right lateral abdomen, and carried it down into the subcutaneous fat sharply. We immediately encountered a large abscess pocket. I suctioned this out, and scooped out large amounts of necrotic subcu fat. Some subcutaneous bleeding vessels were controlled with cautery and several [id number] [id number] Vicryl stick ties. I packed the wound, and then made a third incision over the fluctuant area on the left lateral abdominal wall with similar findings as on the right. These areas were washed out thoroughly with saline. Much of the subcu fat was debrided out with just sweeping my hand in the wound and pulling it out. Once I had drained the majority of the pus and the wound was looking pipe cleaner, I then packed the wounds with Betadine and saline-soaked Kerlix gauze. She tolerated this without apparent complication, and was transferred to the recovery room in guarded condition. cc: Americo Burch MD
[2018-10-10] MEDS: POTASSIUM CHLORIDE IV SCH ×9 (12:34)
[2018-10-10] MEDS: LIPOSYN 20% 250 ML IV SCH (12:34)
[2018-10-10] MEDS: [UNRECOGNIZED DRUG - OTHER] IV SCH ×9 (12:34)
[2018-10-10] MEDS: MAGNESIUM SULFATE IV SCH ×9 (12:34)
[2018-10-10] MEDS: TPN ELECTROLYTES IV SCH ×9 (12:34)
[2018-10-10] MEDS ORDERED: MORPHINE IV PRN (14:24)
[2018-10-10] MEDS: PROTONIX IV SCH (16:09)
[2018-10-10] MEDS: SODIUM CHLORIDE 0.9% INJ SCH (16:09)
[2018-10-10] MEDS: SODIUM BICARBONATE 8.4% 150 MEQ in D5W 1,000 ML IV SCH (16:09)
--- NOTE | 2018-10-10 16:17 | PROGRESS NOTE ---
DATE: 10/10/2018 INTERVAL HISTORY: Ms. Fadumo Watt underwent incision and drainage of abdominal wall abscess with copious amount of pus and necrotic subcutaneous fat removal which was extending from her right lateral abdomen to left lateral abdomen and flank on 10/10/2018, which she tolerated well. Currently, the patient appears to be in a lot of pain. The patient's daughter is at bedside. We discussed about pain management plan. We answered all of her questions. VITAL SIGNS: Currently, vitals suggest temperature of 97.8 degrees, pulse of 109, respiratory rate 14, blood pressure 140/50. She is saturating 99% on room air. PHYSICAL EXAMINATION: She is in mild distress because of pain. Cardiovascular: S1, S2 normal. Tachycardic. No murmur, rub, or gallop. Air entry bilaterally equal. No wheeze, rhonchi, or crackles. Abdomen: Soft. There is generalized tenderness and packing. The wounds are kept open and they are draining. I instructed the nurse to put in a urine catheter. She does not have lower extremity edema. LABORATORY DATA: No new labs except albumin just 1.5. MICROBIOLOGY: No data. IMAGING: No new data. ASSESSMENT AND PLAN: 1. Enterococcus faecalis abdominal wall abscess associated with dislodged percutaneous endoscopic gastrostomy tube, status post removal of percutaneous endoscopic gastrostomy tube on September 25, and now status post incision and drainage of abscess on October 10. Continue intravenous vancomycin, nothing per oral status, total parenteral nutrition, intravenous fluids, intravenous morphine for pain. 2. 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 Continue intravenous Keppra which was started for seizure prophylaxis. 3. Her sepsis in the setting of developing intra-abdominal wall abscess is currently under control; her septic shock and acute kidney injury on presentation have resolved. 4. Continue pantoprazole for stress ulcer prophylaxis. I will continue to hold chemical deep venous thrombosis prophylaxis considering recent surgery and recent history of subdural hematoma. Continue sequential compression devices for deep venous thrombosis prophylaxis. 5. Disposition. I will continue to monitor patient on telemetry unit. Plan of care is discussed with the patient's daughter at bedside. Her questions have been answered. cc: Kb Palmer MD
[2018-10-10] MEDS: VANCOMYCIN 1.3 GM in NS 250 ML IV SCH (21:44)
[2018-10-10] MEDS: TYLENOL PR PRN (23:16)
[2018-10-11] MEDS: MORPHINE IV PRN ×3 (00:09→11:31)
[2018-10-11] MEDS: MORPHINE ONE (03:29)
[2018-10-11] MEDS: KEPPRA 750 MG in NS 100 ML IV SCH ×2 (05:16→17:50)
[2018-10-11] MEDS: SODIUM BICARBONATE 8.4% 150 MEQ in D5W 1,000 ML IV SCH (05:16)
[2018-10-11 06:29] LABS: AGAP 6; BUN 20 mg/dL (8-22); CALCIUM 7.2 mg/dL (8.8-10.2); CHLORIDE 104 mmol/L (98-107); COSMO 283; CREATININE 0.6 mg/dL (0.5-0.9); ESTIMATED GFR > 60; GLUCOSE 211 mg/dL (70-104); MAGNESIUM 1.8 mg/dL (1.5-2.7); PHOSPHORUS 3.2 mg/dL (2.7-4.5); POTASSIUM 3.5 mmol/L (3.5-5.1); SODIUM 137 mmol/L (136-145); TCO2 27 mmol/L (25-35)
[2018-10-11 06:56] LABS: BASO# 0.06 X1000 (0.0-0.2); BASO% 0.5 % (0.0-0.8); EOS# 0.08 X1000 (0.0-0.7); EOS% 0.6 % (0.0-10.0); HEMATOCRIT 21.5 % (37.0-47.0); HEMOGLOBIN 6.7 g/dL (12.0-16.0); IMM GRAN# 0.49 X1000 (0.0-0.04); IMM GRAN% 3.8 % (0.0-0.5); LYMPH# 1.89 X1000 (1.2-3.4); LYMPH% 14.8 % (20.5-51.1); MCHC 31.2 g/dL (33-37); MCV 83.3 FL (81-99); MONO# 1.84 X1000 (0.11-0.59); MONO% 14.4 % (1.7-9.3); MPV 10.8 FL (7.4-10.4); NEUT% 65.9 % (42.2-75.2); PLT 340 X1000 (130-400); RBC 2.58 XMIL (4.2-5.4); RDW 17.5 % (11.5-14.5); WBC 12.76 X1000 (4.8-10.8)
[2018-10-11 07:34] LABS: BANDS 18 % (0-1); EOS 2 % (1-10); HYPOCHROM 1+; LYMPHS 14 % (21-51); MONO 10 % (1-9); SEGS 52 % (42-75)
--- NOTE | 2018-10-11 08:53 | PROGRESS NOTE ---
DATE: 10/08/2018 I was paged that the patient's daughter wanted to talk to me. I met with patient's daughter at bedside. Apparently patient's daughter had discussion about hospice care with the hospice team. She had a discussion about hospice care with the [facility] team. After that she also had a discussion with her brother after understanding the hospice care in detail however on consulting with brother she decided to change her decision and resume aggressive measures again. She requested to go ahead with the surgery to evacuate her intraabdominal abscess. She also wanted me told that the surgical team knew about this. I will let the on-call surgeon doctor know about this. Meanwhile I will start patient back on total parenteral nutrition and intravenous vancomycin and I will await further surgery recommendation. Plan is discussed with the patient's nursing team again. cc: Kb Palmer MD
[2018-10-11] MEDS: [UNRECOGNIZED DRUG - OTHER] IV SCH ×9 (14:16)
[2018-10-11] MEDS: TPN ELECTROLYTES IV SCH ×9 (14:16)
[2018-10-11] MEDS: LIPOSYN 20% 250 ML IV SCH (14:16)
[2018-10-11] MEDS: MAGNESIUM SULFATE IV SCH ×9 (14:16)
[2018-10-11] MEDS: POTASSIUM CHLORIDE IV SCH ×9 (14:16)
[2018-10-11] MEDS: PROTONIX IV SCH (14:53)
--- NOTE | 2018-10-11 15:13 | PROGRESS NOTE ---
DATE: 10/11/2018 HOSPITAL COURSE SUMMARY: Ms. Fadumo Watt is 78-year-old woman who had a subdural hematoma requiring craniotomy in [facility] in August 2018, who also subsequently developed a right parietal ischemic stroke during that hospitalization, was discharged to rehab. Came in on 09/25/2018 with chief complaints of progressively worsening mental status, drowsiness and confusion, and was found to have septic shock secondary to abdominal wall cellulitis that was because of dislodged PEG tube, which was initially removed. She was managed conservatively with intravenous antibiotics until later on when repeat CT scan detected developing abscess. So this patient underwent evacuation of abscess by surgical team on 10/10/2018. Overnight, she did not have any acute events. She kept on having small fever spike with T-max of 101.4 degrees. She has been tachycardic. She has been in pain as well. Family is at bedside. The patient appears in mild distress because of pain. PHYSICAL EXAMINATION: Vital Signs: Currently temperature 99.6 degrees, pulse 103, respiratory rate 16, blood pressure 140/60, saturating 98% room air. General: She is in mild distress and clinching her teeth. She has right-sided gaze preference. HEENT: Her oral cavity has clinching of her teeth. Lungs: Air entry bilaterally equal. No wheeze, rhonchi, crackles. Cardiovascular: S1, S2 normal. No murmur, rub, or gallop. Abdomen: Has wounds which are packed and the dressings are getting soaked. She has fullness in bilateral flanks. Active bowel sounds. She has urine catheter. Input and output suggests positive 3 L. LABORATORY DATA: Today suggestive of leukocytosis, normocytic anemia, normal platelet count and pretty much normal electrolytes. Her blood sugars are in 200s. Microbiology: No data. IMAGING: No data. ASSESSMENT AND PLAN: 1. Enterococcus faecalis abdominal wall abscess associated with dislodged PEG tube, status post removal of percutaneous endoscopic gastrostomy tube on 09/25/2018 and now status post incision and drainage of large abscess on 10/10/2018. Continue intravenous vancomycin, NPO, total parenteral nutrition, intravenous morphine for pain. Considering her worsening pain, I will give her 24 hours of scheduled acetaminophen. I will appreciate Surgery recommendation about enteral nutrition in the future. 2. 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 Continue IV Keppra for seizure prophylaxis. Before this admission, her baseline status was she would be awake, sit in the bed and occasionally speak and identify family members. However, since this hospital admission, she has had progressive decline in her mental status. 3. Others. Her septic shock in the setting of intraabdominal abscess on presentation and acute kidney injury on presentation have resolved; continue pantoprazole for stress ulcer prophylaxis; mechanical prophylaxis for DVT prophylaxis. I will hold chemical prophylaxis considering her recent subdural hematoma. 4. Disposition. Continue to monitor patient in the hospital. Plan of care discussed with the patient's daughter and other family members. All of their questions have been satisfactorily answered. ADDENDUM: I called [facility] on [phone] and have left my cell phone details for possible future discharge needs considering her wound management. I am awaiting their call back. cc: Kb Palmer MD MTDD
[2018-10-11] MEDS ORDERED: TYLENOL PR SCH (16:30)
[2018-10-11] MEDS ORDERED: D50W SYRINGE IV PRN (16:30)
[2018-10-11] MEDS: TYLENOL PR SCH (17:50)
[2018-10-11] MEDS ORDERED: HUMULIN R SUBQ SCH (21:00)
[2018-10-11] MEDS: VANCOMYCIN 1.3 GM in NS 250 ML IV SCH (22:00)
[2018-10-12] MEDS: TYLENOL PR SCH ×3 (01:30→18:38)
[2018-10-12] MEDS: KEPPRA 750 MG in NS 100 ML IV SCH ×2 (05:12→18:38)
[2018-10-12 06:18] LABS: AGAP 5; BUN 17 mg/dL (8-22); CALCIUM 7.7 mg/dL (8.8-10.2); CHLORIDE 105 mmol/L (98-107); COSMO 285; CREATININE 0.5 mg/dL (0.5-0.9); ESTIMATED GFR > 60; GLUCOSE 178 mg/dL (70-104); POTASSIUM 3.8 mmol/L (3.5-5.1); SODIUM 140 mmol/L (136-145); TCO2 30 mmol/L (25-35)
[2018-10-12 07:02] LABS: BASO# 0.03 X1000 (0.0-0.2); BASO% 0.3 % (0.0-0.8); EOS% 0.9 % (0.0-10.0); HEMOGLOBIN 6.4 g/dL (12.0-16.0); IMM GRAN% 4.6 % (0.0-0.5); LYMPH# 1.75 X1000 (1.2-3.4); LYMPH% 16.3 % (20.5-51.1); MCH 25.5 PG (27-31); MCHC 30.5 g/dL (33-37); MCV 83.7 FL (81-99); MONO# 1.37 X1000 (0.11-0.59); MONO% 12.7 % (1.7-9.3); MPV 10.4 FL (7.4-10.4); NEUT# 7.01 X1000 (1.4-6.5); NEUT% 65.2 % (42.2-75.2); PLT 347 X1000 (130-400); RBC 2.51 XMIL (4.2-5.4); RDW 17.4 % (11.5-14.5); WBC 10.76 X1000 (4.8-10.8)
[2018-10-12 08:16] LABS: BANDS 6 % (0-1); HYPOCHROM 1+; LYMPHS 14 % (21-51); MONO 14 % (1-9); NRBC 1 % (0-0); SEGS 66 % (42-75)
[2018-10-12] MEDS ORDERED: NS 500 ML ONE (09:08)
[2018-10-12] MEDS: MORPHINE IV PRN ×2 (10:24→13:59)
[2018-10-12] MEDS: [UNRECOGNIZED DRUG - OTHER] IV SCH ×9 (14:00)
[2018-10-12] MEDS: TPN ELECTROLYTES IV SCH ×9 (14:00)
[2018-10-12] MEDS: M V I IV SCH ×9 (14:00)
[2018-10-12] MEDS: MAGNESIUM SULFATE IV SCH ×9 (14:00)
[2018-10-12] MEDS: LIPOSYN 20% 250 ML IV SCH (14:09)
--- NOTE | 2018-10-12 16:52 | PROGRESS NOTE ---
DATE: 10/12/2018 SUBJECTIVE: This morning Ms. Watt refers to be doing the same. The son was at the bedside at the time of the encounter. Ms. Watt herself is nonverbal, so the son gave most of the interval history. According to the son, the mother looks more alert and more interacting today. OBJECTIVE: Vital signs: Blood pressure is 139/55, pulse of 104, respirations 20, temperature 97.7 degrees. General: Ms. Watt is a 78-year-old female. She is in bed. She does not look to be in any distress. HEENT: Mucosa is pink and moist. Anicteric. Acyanotic. Neck: Supple. Chest: Good air entry bilateral. There is no crepitations, no rhonchi. Cardiovascular: Regular rate and rhythm. No murmurs, no rubs, no gallops. Abdomen: Soft, there is dressing covering the entire abdominal wall which is minimally soiled with Betadine. Extremities: No pedal edema. NEUROLOGIC: Patient is awake, alert. She is nonverbal and has some more dense left-sided hemiparesis. LABORATORY DATA: Has been reviewed. Hemoglobin is down to 6.4. Patient has been group and crossmatch for transfusion. Chemistry is reviewed is completely normal. Medications have all been reviewed. She is still on vancomycin. So far, abdominal culture grew enterococcal faecalis which is V.A.C. ASSESSMENT: 1. Septic shock on presentation secondary to skin and soft tissue infection. 2. Abdominal wall abscess with culture positive for enterococcus faecalis. Patient is status post incision and drainage with percutaneous endoscopic gastrostomy tube removal. 3. Percutaneous endoscopic gastrostomy tube dislodged with complicated abscess. 4. History of right-sided subdural hematoma requiring craniotomy associated with right parietal ischemia resulting with left side hemiparesis. 5. Dysphagia secondary to cerebrovascular accident . 6. Normocytic anemia. The patient will be group and crossmatch for 2 packed red blood cell transfusion. 7. Nutritional support: Ms. Watt is currently on total parenteral nutrition. I think her major from the major concern will be her long-term nutritional support. She will need to be evaluated from the upper gastrointestinal in about a week to see if she regain some strength in her swallowing capabilities to be able to enterally feed her. cc: Jerrod Black MD
--- NOTE | 2018-10-12 18:20 | PROGRESS NOTE ---
DATE: 10/12/2018 Ms. Fadumo Watt had a displaced gastrostomy tube which has caused infection involving her anterior abdominal wall. She had had a recent stroke requiring this gastrostomy tube to be placed, but she cannot swallow safely, and she was in a mcc. We discussed treatment, and the high risk of her needing to be on the ventilator postoperatively. Initially, the family chose to just make her comfortable. Over the weekend, they changed their minds and Dr. Burch took her to surgery and drained an anterior abdominal wall abscess which involved her upper abdomen right and left sides. The wound is being cared for by our wound nurse and it is being packed. There appears to be no undrained purulence. Clinically, she has improved. She is more awake, but she still being fed with TPN and lipids. We will have to try to feed her more naturally with feeding tube although we have trouble maintaining that, and there are doubts whether she will keep it in or not. She did not have to be ventilated after surgery. We will continue wound care. She is on TPN and lipids. We will try to change that from IV nutrition to tube feeding. We could not place another PEG at this point until we control the infection and wounds involving her anterior abdominal wall. cc: Susan Mari MD
[2018-10-12] MEDS: SODIUM CHLORIDE 0.9% INJ SCH (18:37)
[2018-10-12] MEDS: PROTONIX IV SCH (18:37)
[2018-10-12] MEDS: VANCOMYCIN 1.3 GM in NS 250 ML IV SCH (21:06)
[2018-10-13] MEDS: KEPPRA 750 MG in NS 100 ML IV SCH ×2 (05:53→18:34)
[2018-10-13 06:39] LABS: AGAP 7; BUN 19 mg/dL (8-22); CALCIUM 7.6 mg/dL (8.8-10.2); CHLORIDE 106 mmol/L (98-107); COSMO 287; CREATININE 0.4 mg/dL (0.5-0.9); ESTIMATED GFR > 60; GLUCOSE 160 mg/dL (70-104); MAGNESIUM 1.8 mg/dL (1.5-2.7); PHOSPHORUS 3.2 mg/dL (2.7-4.5); SODIUM 141 mmol/L (136-145); TCO2 28 mmol/L (25-35)
[2018-10-13 06:49] LABS: BASO# 0.03 X1000 (0.0-0.2); BASO% 0.3 % (0.0-0.8); HEMATOCRIT 25.3 % (37.0-47.0); HEMOGLOBIN 8.1 g/dL (12.0-16.0); IMM GRAN# 0.46 X1000 (0.0-0.04); IMM GRAN% 4.4 % (0.0-0.5); LYMPH% 12.4 % (20.5-51.1); MCH 26.6 PG (27-31); MCV 83.2 FL (81-99); MONO# 1.04 X1000 (0.11-0.59); MONO% 9.9 % (1.7-9.3); MPV 10.2 FL (7.4-10.4); NEUT# 7.56 X1000 (1.4-6.5); PLT 320 X1000 (130-400); RBC 3.04 XMIL (4.2-5.4); RDW 16.4 % (11.5-14.5); WBC 10.49 X1000 (4.8-10.8)
[2018-10-13 07:28] LABS: BANDS 6 % (0-1); HYPOCHROM 1+; LYMPHS 8 % (21-51); MONO 8 % (1-9); NRBC 1 % (0-0); SEGS 76 % (42-75)
--- NOTE | 2018-10-13 12:23 | DISCHARGE SUMMARY ---
ADMISSION DATE: 09/25/2018 DISCHARGE DATE: 10/13/2018 DISPOSITION: [facility]. FOLLOW UP: 1. Dr. Galicia. 2. Dr. Marquez. 3. Dr. Mari. 4. Medical staff at the LT[facility]. CONSULTATION DURING THIS ADMISSION: Surgery was consulted. Patient was seen by Dr. Mari followed up by Dr. Burch. INVASIVE PROCEDURES DONE DURING THIS ADMISSION: An I and D of the abdominal wall abscess was done by Dr. Burch on 10/10/2018. IMAGING STUDIES OF SIGNIFICANCE: 1. Chest x-ray showed stable chest. 2. A CT scan of the abdomen and pelvic initially did show malposition gastric tube in the subcutaneous tissue. 3. A head CT scan showed a recent right craniotomy with postsurgical changes. There is also subacute superior right parietal infarct. 4. Another CT scan of the abdomen and pelvis was done on 10/06, which showed bilateral pleural effusion and subcutaneous abscess. ADMISSION DIAGNOSES: 1. Sepsis and lactic acidosis from unidentified source. 2. Acute kidney injury. 3. Acute metabolic encephalopathy. 4. Recent history of right parietal CVA. DIAGNOSES AT TIME OF DISCHARGE: 1. Septic shock on presentation secondary to skin and soft tissue infection. 2. Abdominal wall abscess with culture positive for enterococcal faecalis. 3. PEG tube dislodgement which got complicated with abdominal wall abscess. 4. Right sided subdural hematoma requiring craniotomy. 5. Right parietal CVA with residual left-sided hemiparesis. 6. Dysphagia secondary to CVA. 7. Normocytic anemia. 8. Penicillin allergies, that is the reason why we are using vancomycin for the wound infection antimicrobial therapy. 9. Protein calorie malnutrition. Patient is on TPN. DISCHARGE MEDICATIONS: 1. Folic Acid. 2. Amlodipine 5 mg p.o. daily. 3. Lipitor 40 mg p.o. at bedtime. 4. Keppra 750 b.i.d. 5. Trazodone 100 mg p.o. p.r.n. 6. Cholecalciferol. 7. Melatonin 5 mg. 8. Vancomycin 1.25 g IV daily. PRESENTING COMPLAINT: Unresponsiveness. HISTORY OF PRESENTING COMPLAINT: Ms. Watt is a 78-year-old female who has recently been admitted to [facility] because of subdural hematoma status post evacuation and craniotomy. Subsequently, I understand she had an ischemic stroke on the parietal region that left her with a left-sided hemiparesis. The patient was subsequently transferred to rehab after her acute hospitalization. During her stay in [facility], a PEG tube was placed because of functional dysphagia. The patient was doing okay in the rehab, however, she was found unresponsive and brought to the emergency room where she was found to be in septic shock. She was initially admitted to the ICU and critically monitored, was started on broad-spectrum antimicrobial therapy and multiple studies were done. During the hospital course, Ms. Watt was found to have an abscess on the abdominal wall so Surgery was consulted. Incision and drainage was done by Dr. Burch. Postoperatively, the culture came back positive for enterococcal faecalis which was pansensitive. Unfortunately, Ms. Watt has a very bad allergy to penicillins so we decided to use vancomycin for treatment. Wound Care has also been seeing her. She has been fairly stable. Because she is not able to use the enteral route, she has been on TPN at least for now until the wound heals a little better. Then, we will be able to reassess her ability to swallow and start using the enteral route. Ms. Watt has been medically stable, and we think she will be okay for LTAC management at this point. She is currently needing nutritional support with TPN until her wound gets a little better, and her weakness also gets better then we can reassess her swallowing. She will also need physical therapy as well as antimicrobial therapy (vancomycin to be dosed by pharmacy). All of the discharge instructions have been discussed with the son who was at the bedside at the time of the encounter, and he voiced understanding. TIME SPENT: Time spent for discharge is 45 minutes. cc: MD Dr. Grayson Herman MD
[2018-10-13] MEDS: MORPHINE IV PRN (13:10)
[2018-10-13] MEDS: M V I IV SCH ×9 (14:00)
[2018-10-13] MEDS: LIPOSYN 20% 250 ML IV SCH (14:00)
[2018-10-13] MEDS: [UNRECOGNIZED DRUG - OTHER] IV SCH ×9 (14:00)
[2018-10-13] MEDS: TPN ELECTROLYTES IV SCH ×9 (14:00)
[2018-10-13] MEDS: MAGNESIUM SULFATE IV SCH ×9 (14:00)
[2018-10-13] MEDS: D10W 1,000 ML IV SCH (14:16)
[2018-10-13] MEDS: PROTONIX IV SCH (14:33)
[2018-10-13] MEDS: SODIUM CHLORIDE 0.9% INJ SCH (14:33)
--- NOTE | 2018-10-13 15:44 | PROGRESS NOTE ---
DATE: 10/13/2018 Ms. Watt was discharged this morning to go back to an LTAC. However, the wound care nurse went to change the dressing and called us to evaluate the wound. When I went there, there were a lot of erythematous changes, especially to the left lateral aspect of the abdominal wall. The wound was tunneled from one end to the other. There was some purulence that was also extruding out. I think the wound needs more inpatient aggressive care, and I would prefer Surgery to take a look at the wound before the patient is discharged. We will therefore withhold the discharge for today. Continue with the IV antibiotics and have Surgery to evaluate her in the morning. cc: Jerrod Black MD
--- NOTE | 2018-10-13 16:01 | PROGRESS NOTE ---
DATE: 10/13/2018 SUBJECTIVE: Ms Fadumo Watt status post incision and drainage of an anterior abdominal wall abscess. Our wound care nurse Jing is helping clean and pack this wound on a daily basis. I examined the wound last night. It did appear to be clean without evidence of ongoing purulence. She is still receiving IV antibiotics and she is receiving IV TPN and lipids. She is more awake. PLAN: Plans are being made for possible long-term care in [place]. I spoke with the patient's son at the bedside. cc: Susan Mari MD
[2018-10-13] MEDS: VANCOMYCIN 1.3 GM in NS 250 ML IV SCH (20:29)
[2018-10-13 20:39] LABS: AGAP 9; BUN 19 mg/dL (8-22); CALCIUM 7.8 mg/dL (8.8-10.2); CHLORIDE 105 mmol/L (98-107); CHOLESTEROL 101 mg/dL (0-200); COSMO 284; CREATININE 0.5 mg/dL (0.5-0.9); ESTIMATED GFR > 60; GLUCOSE 135 mg/dL (70-104); GOT 18 U/L (10-30); PHOSPHORUS 3.6 mg/dL (2.7-4.5); POTASSIUM 4.3 mmol/L (3.5-5.1); PREALBUMIN 13.6 mg/dL (20-40); SODIUM 140 mmol/L (136-145); TCO2 26 mmol/L (25-35); TRIGLYCERIDES 103 mg/dL (35-135)
[2018-10-14] MEDS: KEPPRA 750 MG in NS 100 ML IV SCH ×2 (05:56→18:53)
[2018-10-14] MEDS ORDERED: LASIX IV ONE (10:12)
[2018-10-14] MEDS: MORPHINE IV PRN ×2 (10:33→22:12)
--- NOTE | 2018-10-14 10:53 | PROGRESS NOTE ---
DATE: 10/14/2018 SUBJECTIVE: This morning, Ms. Watt refers to be doing fairly okay by mumbling some words which seem to resemble yes. There was no family member at the bedside at the time of the encounter. OBJECTIVE: Vital Signs: Blood pressure is 141/63, pulse of 99, respirations are 18, temperature is 99.2 degrees. General Examination: Ms. Watt is a 78-year-old, female. She is in bed. No distress. HEENT: Mucosa is pink and moist. Anicteric. Acyanotic. Neck: Supple. Chest: Good air entry bilaterally. Few crackles in the posterior lung coles. Cardiovascular: Regular rate and rhythm. Abdomen: Soft. There is a dressing over the anterior abdominal wall. It looks to be slightly stained with some secretions and the abdominal wall is tender to palpation. Bowel sounds are remarkably reduced. Extremities: Trace pedal edema. CARPET CLEANER: The patient is awake but nonverbal. Has a dense left-sided hemiparesis and has a left side hemineglect. The patient will only track to the right side and not to the left. Laboratory Data: None for this morning. Glucose is 171. Patient's current repeat blood cultures have been 48 hours negative. ASSESSMENT: 1. Septic shock on presentation secondary to skin and soft tissue infection, resolved. 2. Abdominal wall abscess with Enterococcus faecalis culture positive. The patient is allergic to penicillins as well as Levaquin, so she is currently on vancomycin. 3. Percutaneous endoscopic gastrostomy tube dislodgement with complicated abscess formation. Tube has been removed. Patient has undergone incision and drainage. 4. History of left-sided subdural hematoma requiring craniotomy. 5. Left side parietal ischemia resulting with left-sided hemiparesis with hemineglect noted. 6. Dysphagia secondary to cerebrovascular accident. The patient continues to be on total parenteral nutrition at this point since the percutaneous endoscopic gastrostomy tube had to be removed. 7. Normocytic anemia. 8. Nutritional support. Patient continues to be on total parenteral nutrition. PLAN: In general, Ms. Watt is pending transfer to an LTAC. Yesterday, the wound looked remarkably bad and per recommendation from the wound care nurse, we will prefer that surgery take another look at the wound before the patient gets discharged. We are pending further recommendations from surgery. cc: Jerrod Black MD
[2018-10-14] MEDS: D10W 1,000 ML IV SCH (12:21)
[2018-10-14] MEDS: LIPOSYN 20% 250 ML IV SCH (12:21)
[2018-10-14 12:58] LABS: AGAP 7; BUN 20 mg/dL (8-22); CHLORIDE 101 mmol/L (98-107); COSMO 279; GLUCOSE 176 mg/dL (70-104); POTASSIUM 4.1 mmol/L (3.5-5.1); SODIUM 136 mmol/L (136-145); TCO2 28 mmol/L (25-35)
[2018-10-14 12:59] LABS: CALCIUM 7.4 mg/dL (8.8-10.2); CHOLESTEROL 116 mg/dL (0-200); CREATININE 0.5 mg/dL (0.5-0.9); ESTIMATED GFR > 60; GOT 20 U/L (10-30); MAGNESIUM 1.9 mg/dL (1.5-2.7); PHOSPHORUS 3.7 mg/dL (2.7-4.5); PREALBUMIN 15.7 mg/dL (20-40); TRIGLYCERIDES 114 mg/dL (35-135)
[2018-10-14] MEDS: [UNRECOGNIZED DRUG - OTHER] IV SCH ×9 (14:38)
[2018-10-14] MEDS: TPN ELECTROLYTES IV SCH ×9 (14:38)
[2018-10-14] MEDS: M V I IV SCH ×9 (14:38)
[2018-10-14] MEDS: MAGNESIUM SULFATE IV SCH ×9 (14:38)
[2018-10-14] MEDS: PROTONIX IV SCH (14:39)
[2018-10-14] MEDS: SODIUM CHLORIDE 0.9% INJ SCH (14:39)
--- NOTE | 2018-10-14 17:09 | PROGRESS NOTE ---
DATE: 10/14/2018 Ms. Fadumo Watt is getting daily wound care per our wound care nurse. The wound is being packed. There was no evidence of un-drained purulence. There was some cellulitis involving her flanks bilaterally but that is improving. She remains on IV antibiotics. We will continue wound care. We will check the wound tomorrow and see if she is ready for discharge to a long-term care facility. cc: Susan Mari MD
[2018-10-14] MEDS: VANCOMYCIN 1.3 GM in NS 250 ML IV SCH (21:57)
[2018-10-15] MEDS: KEPPRA 750 MG in NS 100 ML IV SCH (05:14)
[2018-10-15] MEDS: MORPHINE IV PRN ×2 (07:38→13:11)
--- NOTE | 2018-10-15 10:53 | DISCHARGE SUMMARY ---
ADMISSION DATE: 09/25/2018 DISCHARGE DATE: 10/15/2018 ADDENDUM: Ms. Watt was actually discharged about 2 days ago. However, because of the state of her wound, it was deemed reasonable to give her a couple more days in the hospital for wound care. Over the course of the past 2 days Wound Care has evaluated her on daily basis as well as Surgery. This morning she feels a whole lot better. I have spoken with Sheila Jing, the wound care nurse, and she seems to be satisfied with the progress of the wound. Surgery also evaluated the wound yesterday and they seem to be very comfortable with the progress. Ms. Watt's current vitals: Blood pressure is 144/68, pulse of 99, respirations 24, temperature is 98.7. DISCHARGE DIAGNOSES: 1. Septic shock on presentation secondary to skin and soft tissue infection. The patient has been on antimicrobial therapy. 2. Abdominal wall abscess with culture positive for enterococcal faecalis. The patient has had incision and drainage and we plan to continue IV antibiotics for a total of 14 days. After the 14 days of IV antimicrobial, I think this can be switched to something oral. Unfortunately, Ms. Watt is allergic to penicillin. 3. Right parietal cerebrovascular accident with residual left-sided hemiparesis and laverne neglect. 4. Right-sided subdural hematoma requiring craniotomy in the past. 5. Protein calorie malnutrition. Patient also has functional dysphagia due to the cerebrovascular accident so she is currently on TPN. PLAN: Our general plan is Ms Watt will be transferred to an LTAC today. She will continue with IV vancomycin for a total of 14 days counting from today. At the end of therapy, she would be evaluated to see if this can be transitioned to p.o. medication. Of note Ms. Watt is allergic to penicillin and to levofloxacin. Ms. Watt will also continue needing wound care as recommended by the wound care nurse and also will continue physical therapy. She would have to follow up with Dr. Mari as well as her primary care doctor, Dr. Marquez. Please refer to the details of the discharge summary which was dictated on 10/13/2018. cc: Jerrod Black MD
--- NOTE | 2018-10-15 11:38 | PROGRESS NOTE ---
DATE: 10/15/2018 Ms. Fadumo Watt remains in bed. We are changing her anterior abdominal wall dressings daily with the help of our wound care nurse. They are being packed open. There does not appear to be any undrained purulence. There is some cellulitis around her umbilicus and I may locally try to drain any purulence in that area. She still receiving TPN because she cannot swallow and keeping a tube in her is difficult. We will continue wound care. She is on IV antibiotics and receiving TPN and lipids. We are trying to get her placed in a long-term care facility. cc: Susan Mari MD
[2018-10-15] MEDS ORDERED: MAGNESIUM SULFATE IV SCH ×8 (14:30)
[2018-10-15] MEDS ORDERED: M V I IV SCH ×8 (14:30)
[2018-10-15] MEDS ORDERED: [UNRECOGNIZED DRUG - OTHER] IV SCH ×8 (14:30)
[2018-10-15] MEDS ORDERED: TPN ELECTROLYTES IV SCH ×8 (14:30)
[2018-10-15 16:13] VITALS: BP 140/68
== END 2018-10-15 16:18 | DRG 987 ==
LOC: SUPCPDRO → ED 12:16 → ICU 21:09 → SUATTDRO 21:09 → ICU 22:33 → 3S 09-28 23:04 → 4N 10-01 14:07
PROVIDERS: ATTEND Internal Medicine